=== PATIENT | female | born 1960 | race Caucasian/White ===

== ENCOUNTER 2018-05-06 13:34 | Emergency (ER) | payer MEDICARE, OTHER, SELFPAY ==
[2018-05-06 13:37] VITALS: BP 156/85; PULSE 88; RESP 16; TEMP 36.2; O2SAT 100; BMI 25.6
[2018-05-06 15:19] LABS: Hematocrit 34.3 % (36-46); Hemoglobin 11.4 g/dL (12.0-16.0); Mean Corpuscular HGB Conc 33.1 % (30-36); Mean Corpuscular Hemoglobin 25.9 PG (26-34); Mean Corpuscular Volume 78.3 fL (80-100); Platelet Count 307 X10^3/uL (150-400); Red Blood Cell Count 4.38 X10^6/uL (4.0-5.2)
[2018-05-06 15:20] LABS: INR 1.1 (0.9-1.3); Prothrombin Time 11.9 SECONDS (10.1-12.7)
[2018-05-06 15:21] LABS: Add Manual Diff / Slide Review YES
[2018-05-06 15:23] LABS: PTT Partial Thromboplastin Tim 30 SECONDS (26.4-36.2)
[2018-05-06 15:25] LABS: Alanine Aminotransferase 54 IU/L (9-52); Albumin 3.5 g/dL (3.5-5.0); Albumin Globulin Ratio 1.2 (1.0-2.8); Alkaline Phosphatase 496 U/L (38-126); Aspartate Aminotransferase 78 IU/L (14-36); BUN Creatinine Ratio 16.7 (6-22); Bilirubin Total 0.5 mg/dL (0.2-1.3); Blood Urea Nitrogen 10 mg/dL (7-17); Calcium 8.9 mg/dL (8.4-10.2); Carbon Dioxide 31 mmol/L (22-32); Chloride 100 mmol/L (98-107); Estimated Glomerular Filt Rate > 60.0 mL/min (>60); Glucose 247 mg/dL (70-100); HEMOLYSIS < 15 (0-50); Lactate (Lactic Acid) 2.3 mmol/L (0.7-2.1); Lipase 55 U/L (23-300); Sodium 143 mmol/L (137-145); Total Protein 6.5 g/dL (6.3-8.2)
[2018-05-06 15:48] LABS: Neutrophils Absolute Manual 5250 /uL (3000-5900); RBC Morphology Normal Morphology; Total Cells Counted 100
[2018-05-06 15:55] VITALS: BP 124/111; PULSE 90; RESP 18; O2SAT 100
--- NOTE | 2018-05-06 16:04 | DI.US.S_ITS ---
PROCEDURE: US ABDOMEN LIMITED INDICATIONS: ascites TECHNIQUE: Real-time focused scanning was performed of the abdomen, with image documentation. COMPARISON: None. FINDINGS: Limited sonographic images demonstrate ascites with midline marking for paracentesis. IMPRESSION: Ascites and marking for paracentesis. Dictated by: Nicole Amaya M.D. on 05/06/2018 at 17:12 Approved by: Nicole Amaya M.D. on 05/06/2018 at 17:13
--- NOTE | 2018-05-06 16:05 | DI.CT.S_ITS ---
PROCEDURE: CT ABDOMEN PELVIS W CON INDICATIONS: pancreatic cancer, increased ascites and abd pain TECHNIQUE: After the administration of intravenous contrast, 5 mm thick sections acquired from the diaphragm to the symphysis. 5 mm coronal and sagittal reformats were acquired. For radiation dose reduction, the following was used: automated exposure control, adjustment of mA and/or kV according to patient size. COMPARISON: None. FINDINGS: Image quality: Excellent. ABDOMEN: Lung bases: Lung bases are clear. Heart size is normal. Solid organs: Irregular liver masses are seen, particularly within the inferior right liver. The liver demonstrates normal size. Gallbladder wall does not appear thickened. Biliary system is non dilated. The pancreatic tail is absent. Please correlate with known patient history. Spleen is normal in size and enhancement. No adrenal nodules. Kidneys demonstrate normal size and enhancement, without hydronephrosis. Peritoneum and bowel: Bowel loops demonstrate normal wall thickness and caliber. No free air. There is moderate to prominent ascites seen. Mild diverticulosis is seen throughout the colon. Nodes and vessels: No retroperitoneal or mesenteric adenopathy by size criteria. Aorta and inferior vena cava are normal in size. Miscellaneous: No ventral hernias. Anasarca is seen. PELVIS: Genitourinary: Bladder wall thickness is normal. Miscellaneous: No inguinal hernias or adenopathy. Bones: Multiple foci of sclerotic metastatic disease are seen, which are most prominent involving the T10 level. Incidental note is made of limbus vertebral bodies at L4 and L5. No vertebral body compression fractures. S-shaped scoliotic curvature is seen. IMPRESSION: The pancreatic tail is absent and is presumed to have been previously resected. Multiple liver masses are seen, which presumably represent diffuse metastatic disease. Moderate to prominent ascites is seen. Anasarca is seen. Multiple foci of sclerotic bony metastatic disease are seen. Dictated by: Brent Valerio M.D. on 05/06/2018 at 15:33 Approved by: Brent Valerio M.D. on 05/06/2018 at 15:39
--- NOTE | 2018-05-06 16:07 | ED.ABDPAIN ---
HPI - Abdominal Pain General Chief Complaint: Abdominal Pain Stated Complaint: Distended stomach Time Seen by Provider: 05/06/18 15:25 Source: patient Mode of arrival: ambulatory Limitations: no limitations History of Present Illness HPI narrative: Patient complains of increased abdominal girth and decreased ability to eat over the last 3 days. She has a history of pancreatic cancer with metastases to the liver, for which she is followed in [place]. Patient denies fevers. No urinary symptoms. She has not been nauseated or vomiting. She states she is hungry, but as soon as she eats something she feels as though she is instantly full. MD complaint: abdominal pain ( Patient states this is more of a fullness or discomfort.) Onset (ago): day(s) Pain Consistency: constant Location: diffuse Severity: moderate Severity scale (1-10): 4 Quality: fullness and dull Radiation: none Migration to: no migration Relieving factors: nothing Exacerbating factors: nothing Associated symptoms: other ( Inability to eat despite feeling hungry; early satiety.) Treatments prior to arrival: other ( None) Related Data Home Medications Medication Instructions Recorded Confirmed [CANNIBUS] 1 ea MISCELLANEOUS PRN PRN #0 11/16/17 05/06/18 atorvastatin [Lipitor] 20 mg PO QPM #0 11/16/17 05/06/18 hydrocodone-acetaminophen [[place]] 1 tab PO Q8HP PRN #0 11/16/17 05/06/18 pramipexole [Mirapex] 0.25 mg PO QPM #0 11/16/17 05/06/18 everolimus (antineoplastic) 10 mg PO DAILY 05/06/18 05/06/18 [Afinitor] levothyroxine 50 mcg PO DAILY 05/06/18 05/06/18 lisinopril 40 mg PO DAILY 05/06/18 05/06/18 Allergies Allergy/AdvReac Type Severity Reaction Status Date / Time No Known Drug Allergies Allergy Verified 05/06/18 13:37 Review of Systems Review of Systems All systems reviewed & are unremarkable except as noted in HPI and below Constitutional Denies chills, Denies fever(s), Denies lethargy and Denies weakness Eyes Denies change in vision, Denies eye discharge, Denies irritation and Denies loss of vision ENT Ears, Nose, Mouth, and Throat: Denies change in voice, Denies neck pain and Denies sore throat Cardiovascular Denies chest pain, Denies irregular heart rhythm, Denies lightheadedness, Denies palpitations, Denies dyspnea, Denies dyspnea on exertion and Denies orthopnea Respiratory Denies cough, Denies dyspnea, Denies dyspnea on exertion and Denies wheezing Gastrointestinal Gastrointestinal: Reports abdominal pain ( fullness), Denies change in bowel habits, Denies diarrhea, Denies nausea and Denies vomiting Genitourinary Denies hematuria, Denies flank pain, Denies urinary incontinence and Denies urinary urgency Musculoskeletal Denies neck pain Integumentary/Breasts Denies pruritus, Denies erythema, Denies rash and Denies wounds Neurologic Denies confusion, Denies loss of vision and Denies weakness Psychiatric Denies anxiety, Denies confusion, Denies depression, Denies homicidal ideation and Denies suicidal ideation Endocrine Denies palpitations Hematologic/Lymphatic Denies easy bruising Allergic/Immunologic Denies wheezing PFSH Medical History Pancreatic cancer metastasized to liver (Acute) Surgical History No pertinent past surgical history (Acute) Social History Smoking Status: Current every day smoker Exam Initial Vital Signs Initial Vital Signs: Vital Signs Temperature 97.1 F L 05/06/18 13:37 Pulse Rate 88 05/06/18 13:37 Respiratory Rate 16 05/06/18 13:37 Blood Pressure 156/85 H 05/06/18 13:37 Pulse Oximetry 100 05/06/18 13:37 Const General: cooperative and well developed Nutritional Appearance: well nourished Orientation: alert, awake, oriented x3 and not confused [facility] Head: normocephalic and atraumatic Ears: external ears normal and TM's normal bilaterally Nose: external nose normal and No nasal discharge Face and sinus: sinuses nontender, face symmetric, no sinus tenderness and No dry mucous membranes Mouth: oral mucosae normal and moist mucous membranes Teeth and gingiva: dentition normal Throat: tonsils normal and uvula midline Eyes General: appearance normal, both eyes and all related structures Eyelids: eyelids normal Conjunctivae: conjunctivae normal Sclera: sclerae normal Pupils: PERRL EOM: EOM intact bilaterally Neck Neck: normal visual inspection, trachea midline, No lymphadenopathy, No midline deformity and No JVD Lymphatic: No lymphedema Chest Chest: normal inspection of the chest Resp Effort & Inspection: normal respiratory effort, able to speak in complete sentences, no respiratory distress and no use of accessory muscles Auscultation: clear to auscultation bilaterally, no rales, no rhonchi and no wheezes Cardio Rate: regular rate Rhythm: regular rhythm Heart Sounds: no click, no gallops, no murmurs and no rubs Pulses: normal peripheral pulses GI Inspection: distended Palpation: soft, no hepatosplenomegaly, No guarding, No pulsatile mass and tender ( slight, diffuse) Auscultation: normal bowel sounds Back/Spine/Pelvis Back: No CVA tenderness Cervical Spine: cervical ROM normal and No pain with cervical ROM Thoracic/Lumbar Spine: thoracic and lumbar spine normal to inspection Skin General: no rashes or lesions noted, No jaundice and No petechiae Neuro General: alert, oriented x3, gait normal and no focal motor deficits Speech: speech normal Extrem General: full ROM, no clubbing, cyanosis or edema, no pedal edema and no calf tenderness Psych Appearance: well kempt Mental Status: mental status grossly normal Attitude: cooperative Thought Content: normal and suicidality Judgment: judgment good Procedures Paracentesis Time Out Performed: Yes Local Anesthetic: lidocaine 1% Amount of anesthesia used (mL): 10 Fluid: clear and sent to lab for analysis Post Procedure Exam: awake, alert, normal BP, normal HR and normal SpO2 Patient Tolerated Procedure: Well (3 L of fluid obtained.) Complications: none Course Course Narrative: patient was worked up with labs, which were unremarkable, and a CT scan of the abdomen and pelvis, which showed metastatic disease of the liver with moderate to prominent ascites. Paracentesis was performed by myself with nursing assistance, and demonstrated clear, serous appearing fluid. Orders Ordered: ED Orders 05/06/18 15:00 Ammonia (NH3) Stat Complete Blood Count AUTO DIFF Stat Comprehensive Metabolic Panel Stat Lactate (Lactic Acid) Stat Lipase Stat Partial Thromboplastin Time Stat Prothrombin Time INR Stat 05/06/18 16:04 US abdomen limited Stat 05/06/18 16:05 CT abdomen pelvis w con Stat Vital Signs - 8 hr 05/06/18 13:37 05/06/18 15:55 Temperature 97.1 F L Pulse Rate 88 90 Respiratory Rate 16 18 Blood Pressure 156/85 H Blood Pressure [Right Arm] 124/111 H Pulse Oximetry 100 100 MDM - Abdominal Pain Medical Records Attestation: I reviewed the patient's medical records. Lab Data Attestation: I reviewed the patient's lab results. Result diagrams: 05/06/18 15:00 05/06/18 15:00 Lab Results 05/06/18 05/06/18 05/06/18 Range/Units 15:00 15:00 15:00 WBC 7.0 (4.5-11.0) X10^3/uL RBC 4.38 (4.0-5.2) X10^6/uL Hgb 11.4 L (12.0-16.0) g/dL Hct 34.3 L (36-46) % MCV 78.3 L (80-100) fL MCH 25.9 L (26-34) PG MCHC 33.1 (30-36) % RDW 16.0 H (11.6-14.8) % Plt Count 307 (150-400) X10^3/uL Neut % (Auto) Not Reportable Lymph % (Auto) Not Reportable Centre % (Auto) Not Reportable Eos % (Auto) Not Reportable Baso % (Auto) Not Reportable Total Counted 100 Seg Neutrophils % 70.0 (38-70) % Band Neutrophils % 5.0 (3-7) % Lymphocytes % (Manual) 13.0 L (25-45) % Atypical Lymphs % 2.0 H ( - 0) % Monocytes % (Manual) 9.0 (2-11) % Eosinophils % (Manual) 1.0 L (2-4) % Neutrophils # (Manual) 5250 (1606-1145) /uL RBC Morphology Normal morphology PT 11.9 (10.1-12.7) SECONDS INR 1.1 (0.9-1.3) APTT 30 (26.4-36.2) SECONDS Sodium 143 (137-145) mmol/L Potassium 4.0 (3.4-5.1) mmol/L Chloride 100 (98-107) mmol/L Carbon Dioxide 31 (22-32) mmol/L BUN 10 (7-17) mg/dL Creatinine 0.60 (0.52-1.04) mg/dL Estimated GFR > 60.0 (>60) mL/min BUN/Creatinine Ratio 16.7 (6-22) Glucose 247 H (70-100) mg/dL Lactate (0.7-2.1) mmol/L Calcium 8.9 (8.4-10.2) mg/dL Total Bilirubin 0.5 (0.2-1.3) mg/dL AST 78 H (14-36) IU/L ALT 54 H (9-52) IU/L Alkaline Phosphatase 496 H (38-126) U/L Ammonia (9-30) umol/L Total Protein 6.5 (6.3-8.2) g/dL Albumin 3.5 (3.5-5.0) g/dL Globulin 3.0 (1.7-4.1) g/dL Albumin/Globulin Ratio 1.2 (1.0-2.8) Lipase 55 (23-300) U/L 05/06/18 05/06/18 Range/Units 15:00 15:00 WBC (4.5-11.0) X10^3/uL RBC (4.0-5.2) X10^6/uL Hgb (12.0-16.0) g/dL Hct (36-46) % MCV (80-100) fL MCH (26-34) PG MCHC (30-36) % RDW (11.6-14.8) % Plt Count (150-400) X10^3/uL Neut % (Auto) Lymph % (Auto) Centre % (Auto) Eos % (Auto) Baso % (Auto) Total Counted Seg Neutrophils % (38-70) % Band Neutrophils % (3-7) % Lymphocytes % (Manual) (25-45) % Atypical Lymphs % ( - 0) % Monocytes % (Manual) (2-11) % Eosinophils % (Manual) (2-4) % Neutrophils # (Manual) (7375-7783) /uL RBC Morphology PT (10.1-12.7) SECONDS INR (0.9-1.3) APTT (26.4-36.2) SECONDS Sodium (137-145) mmol/L Potassium (3.4-5.1) mmol/L Chloride (98-107) mmol/L Carbon Dioxide (22-32) mmol/L BUN (7-17) mg/dL Creatinine (0.52-1.04) mg/dL Estimated GFR (>60) mL/min BUN/Creatinine Ratio (6-22) Glucose (70-100) mg/dL Lactate 2.3 H (0.7-2.1) mmol/L Calcium (8.4-10.2) mg/dL Total Bilirubin (0.2-1.3) mg/dL AST (14-36) IU/L ALT (9-52) IU/L Alkaline Phosphatase (38-126) U/L Ammonia 15.0 (9-30) umol/L Total Protein (6.3-8.2) g/dL Albumin (3.5-5.0) g/dL Globulin (1.7-4.1) g/dL Albumin/Globulin Ratio (1.0-2.8) Lipase (23-300) U/L Point of care testing: Urine Dip Bedside Urine Glucose 500 mg/dl Bedside Urine Bilirubin - Negative Bedside Urine Ketone - Negative Urine Specific [place] 1.020 Bedside Urine Occult Blood - Negative Bedside Urine pH 6.0 Bedside Urine Protein +/- 15 Bedside Urine Urobilinogen - Negative Bedside Urine Nitrite - Negative Bedside Urine Leukocytes - Negative Esterase Discharge Plan Departure Patient Disposition: Home Clinical Impression: Ascites, Pancreatic cancer metastasized to liver, S/P abdominal paracentesis Discharge Date/Time: 05/06/18 18:15 Interventions: ED Discharge Assessment Last Done: 05/06/18 18:14 Instructions: DI for Ascites, DI for Abdominal Paracentesis Activity Restrictions/Additional Instructions: Your CT scan shows that you have fluid building up in your abdomen. This is a result of the cancer that is in your liver. 3 L have been drained out of your abdomen today. Please follow up with her oncologist to discuss further treatment of your cancer. Prescriptions: No Action atorvastatin [Lipitor] 20 MG tablet 20 mg PO QPM Qty: 0 RF: 0 hydrocodone-acetaminophen [[place]] 10 MG/325 MG tablet 1 tab PO Q8HP PRN (Reason: Pain, Moderate) Qty: 0 RF: 0 pramipexole [Mirapex] 0.25 MG tablet 0.25 mg PO QPM Qty: 0 RF: 0 [CANNIBUS] 1 ea miscellaneous PRN PRN (Reason: misc) Qty: 0 RF: 0 levothyroxine 50 mcg tablet 50 mcg PO DAILY RF: 0 lisinopril 40 mg tablet 40 mg PO DAILY RF: 0 everolimus (antineoplastic) [Afinitor] 10 mg tablet 10 mg PO DAILY RF: 0 Referrals: Outside Services [Outside] ( Please follow-up with your primary care physician and oncologist when you get back home.)
[2018-05-06 17:43] VITALS: BP 144/84; PULSE 81; RESP 18; O2SAT 100
[2018-05-06 19:08] LABS: Reflexed Lactate in 2 Hours Y
== END 2018-05-06 18:15 | disposition home or self-care (01) ==
PROVIDERS: Nurse Practitioner Family; Emergency Provider Emergency Medicine
DX: R18.8 Other ascites (principal); C25.9 Malignant neoplasm of pancreas, unspecified; C78.7 Secondary malignant neoplasm of liver and intrahepatic bile duct; Z98.890 Other specified postprocedural states
CPT/HCPCS: 36591; 49082; 74177; 76705; 80053; 81003; 82140; 83605; 83690; 85025; 85610; 85730; 87070; 87075; 87205; 99283; 99285; Q9967

== ENCOUNTER 2018-05-19 15:37 | Emergency (ER) | payer MEDICARE, OTHER, SELFPAY ==
[2018-05-19 15:55] VITALS: BP 112/77; PULSE 104; RESP 18; TEMP 36.4; O2SAT 100; BMI 25.5
--- NOTE | 2018-05-19 18:35 | DI.US.S_ITS ---
PROCEDURE: US ABDOMEN LIMITED INDICATIONS: ASCITIES; ISAIAS FOR PARACENTESIS TECHNIQUE: Real-time focused scanning was performed of the abdomen, with image documentation. COMPARISON: None. FINDINGS: Marker sonographic guidance for paracentesis. The skin to fluid distance is 7 mm. IMPRESSION: Sonographic guidance for paracentesis. Dictated by: Alysia Segura M.D. on 05/19/2018 at 19:20 Approved by: Alysia Segura M.D. on 05/19/2018 at 19:21
[2018-05-19 19:21] VITALS: BP 113/69; PULSE 94; RESP 18; O2SAT 96
[2018-05-19 19:30] VITALS: BP 114/66; PULSE 97; RESP 14
[2018-05-19 19:45] LABS: INR 1.1 (0.9-1.3); Prothrombin Time 12.4 SECONDS (10.1-12.7)
[2018-05-19 19:48] LABS: PTT Partial Thromboplastin Tim 29 SECONDS (26.4-36.2)
[2018-05-19 19:54] LABS: Alanine Aminotransferase 43 IU/L (9-52); Albumin 3.3 g/dL (3.5-5.0); Albumin Globulin Ratio 1.1 (1.0-2.8); Alkaline Phosphatase 379 U/L (38-126); Aspartate Aminotransferase 105 IU/L (14-36); BUN Creatinine Ratio 21.3 (6-22); Bilirubin Total 1.1 mg/dL (0.2-1.3); Blood Urea Nitrogen 17 mg/dL (7-17); Carbon Dioxide 30 mmol/L (22-32); Chloride 98 mmol/L (98-107); Estimated Glomerular Filt Rate > 60.0 mL/min (>60); Globulin 3.1 g/dL (1.7-4.1); Glucose 164 mg/dL (70-100); HEMOLYSIS < 15 (0-50); Sodium 138 mmol/L (137-145); Total Protein 6.4 g/dL (6.3-8.2)
[2018-05-19 19:59] LABS: Add Manual Diff / Slide Review NO; Basophils Percent Auto 1.4 % (0-2); Eosinophils Percent Auto 0.1 % (2-4); Hematocrit 34.1 % (36-46); Lymphocytes Percent Auto 14.8 % (25-40); Mean Corpuscular HGB Conc 32.3 % (30-36); Mean Corpuscular Hemoglobin 25.4 PG (26-34); Mean Corpuscular Volume 78.6 fL (80-100); Monocytes Percent Auto 10.4 % (3-14); Neutrophils Absolute Auto 7900 /uL (3000-5900); Neutrophils Percent Auto 73.3 % (50-75); Platelet Count 521 X10^3/uL (150-400); Red Blood Cell Count 4.34 X10^6/uL (4.0-5.2); Red Cell Distribution Width 17.5 % (11.6-14.8); White Blood Cell Count 10.7 X10^3/uL (4.5-11.0)
[2018-05-19 20:00] VITALS: BP 119/79; PULSE 97; RESP 14; O2SAT 98
[2018-05-19 20:02] LABS: Lipase 27 U/L (23-300)
[2018-05-19 20:30] VITALS: BP 104/62; PULSE 97; RESP 14; TEMP 36.6; O2SAT 97
[2018-05-19] MEDS: HYDROMORPHONE 1 MG INJ 0.5 MG IV (20:31)
--- NOTE | 2018-05-19 21:36 | ED_ITS ---
HPI - Abdominal Pain General Chief Complaint: Abdominal Pain Stated Complaint: ABD FLUID PAIN Time Seen by Provider: 05/19/18 19:02 Source: patient, RN notes reviewed and old records reviewed Mode of arrival: ambulatory Limitations: no limitations History of Present Illness HPI narrative: patient is a 58-year-old female who has a history of pancreatic cancer with mets to liver. She continues to have ascites. She was seen evaluated here 05/06/2018 in she had any ED paracentesis. She says today it feels much worse she starting to have difficulty breathing her legs are swollen. She has not had any fever or chills. Her abdomen is nontender but distended. MD complaint: abdominal pain Onset (ago): day(s) Pain Consistency: constant Location: diffuse Quality: fullness Migration to: no migration Relieving factors: nothing Exacerbating factors: nothing Associated symptoms: denies other symptoms Related Data Home Medications Medication Instructions Recorded Confirmed [CANNIBUS] 1 ea MISCELLANEOUS PRN PRN #0 11/16/17 05/06/18 atorvastatin [Lipitor] 20 mg PO QPM #0 11/16/17 05/19/18 hydrocodone-acetaminophen [[place]] 1 tab PO Q8HP PRN #0 11/16/17 05/19/18 pramipexole [Mirapex] 0.25 mg PO QPM #0 11/16/17 05/19/18 everolimus (antineoplastic) 10 mg PO DAILY 05/06/18 05/19/18 [Afinitor] levothyroxine 50 mcg PO DAILY 05/06/18 05/06/18 lisinopril 05/19/18 Allergies Allergy/AdvReac Type Severity Reaction Status Date / Time No Known Drug Allergies Allergy Verified 05/06/18 13:37 Review of Systems Review of Systems All systems reviewed & are unremarkable except as noted in HPI and below Constitutional Denies chills, Denies fever(s), Denies lethargy and Denies weakness Cardiovascular Denies chest pain, Denies irregular heart rhythm, Denies lightheadedness, Denies palpitations, Reports dyspnea and Denies orthopnea Respiratory Reports as per HPI and Reports dyspnea Gastrointestinal Gastrointestinal: Reports as per HPI, Reports abdominal pain and Reports vomiting Genitourinary Denies hematuria, Denies flank pain, Denies urinary incontinence and Denies urinary urgency Musculoskeletal Denies back pain, Denies muscle weakness, Denies numbness and Denies tingling Integumentary/Breasts Denies pruritus, Denies erythema, Denies rash and Denies wounds Neurologic Denies numbness, Denies tingling and Denies weakness Endocrine Denies palpitations PFSH Medical History Pancreatic cancer metastasized to liver (Acute) Surgical History No pertinent past surgical history (Acute) Social History Smoking Status: Current every day smoker Exam Initial Vital Signs Initial Vital Signs: Vital Signs Temperature 97.6 F 05/19/18 15:55 Pulse Rate 104 H 05/19/18 15:55 Respiratory Rate 18 05/19/18 15:55 Blood Pressure 112/77 05/19/18 15:55 Pulse Oximetry 100 05/19/18 15:55 GENERAL: A thin chronically ill no acute distress HEENT: Head atraumatic,EOMI, pupils reactive, CARDIOVASCULAR: Regular rate and rhythm without murmurs, rubs or gallops. RESPIRATORY: Breath sounds equal bilaterally, no wheezes rales or rhonchi. ABDOMEN: Distended positive fluid wave nontender EXTREMITIES: Normal range of motion, no clubbing or edema. Neurovascularly intact NEUROLOGICAL: Alert and oriented x4.Normal gait and speech. SKIN: Warm, dry, no laceration, no petechiae, no rashes or lesions. Procedures Paracentesis Time Out Performed: Yes Local Anesthetic: lidocaine 1% Amount of anesthesia used (mL): 2 Fluid: clear (Yellow ) Post Procedure Exam: awake, alert, normal BP, normal HR and normal SpO2 Patient Tolerated Procedure: Well ( 2 L removed) and No complications Complications: none Course Orders Ordered: ED Orders 05/19/18 18:35 US abdomen limited Stat 05/19/18 19:33 Complete Blood Count AUTO DIFF Stat Comprehensive Metabolic Panel Stat Lipase Stat Partial Thromboplastin Time Stat Prothrombin Time INR Stat Discontinued Medications Hydromorphone HCl (Dilaudid) 0.5 mg IV NOW ONE Stop: 05/19/18 20:18 Last Admin: 05/19/18 20:31 Dose: 0.5 mg Vital Signs - 8 hr 05/19/18 19:21 05/19/18 19:30 05/19/18 20:00 Temperature Pulse Rate 94 H 97 H 97 H Respiratory Rate 18 14 14 Blood Pressure [Right Arm] 113/69 114/66 119/79 Pulse Oximetry 96 98 05/19/18 20:30 Temperature 98 F Pulse Rate 97 H Respiratory Rate 14 Blood Pressure [Right Arm] 104/62 Pulse Oximetry 97 MDM - Abdominal Pain Lab Data Attestation: I reviewed the patient's lab results. Result diagrams: 05/19/18 19:33 05/19/18 19:33 Lab Results 05/19/18 05/19/18 05/19/18 Range/Units 19:33 19:33 19:33 WBC 10.7 (4.5-11.0) X10^3/uL RBC 4.34 (4.0-5.2) X10^6/uL Hgb 11.0 L (12.0-16.0) g/dL Hct 34.1 L (36-46) % MCV 78.6 L (80-100) fL MCH 25.4 L (26-34) PG MCHC 32.3 (30-36) % RDW 17.5 H (11.6-14.8) % Plt Count 521 H (150-400) X10^3/uL Neut % (Auto) 73.3 (50-75) % Lymph % (Auto) 14.8 L (25-40) % [place] % (Auto) 10.4 (3-14) % Eos % (Auto) 0.1 L (2-4) % Baso % (Auto) 1.4 (0-2) % Neut # (Auto) 7900 H (3413-5924) /uL PT 12.4 (10.1-12.7) SECONDS INR 1.1 (0.9-1.3) APTT 29 (26.4-36.2) SECONDS Sodium 138 (137-145) mmol/L Potassium 4.0 (3.4-5.1) mmol/L Chloride 98 (98-107) mmol/L Carbon Dioxide 30 (22-32) mmol/L BUN 17 (7-17) mg/dL Creatinine 0.80 (0.52-1.04) mg/dL Estimated GFR > 60.0 (>60) mL/min BUN/Creatinine Ratio 21.3 (6-22) Glucose 164 H (70-100) mg/dL Calcium 9.0 (8.4-10.2) mg/dL Total Bilirubin 1.1 (0.2-1.3) mg/dL AST 105 H (14-36) IU/L ALT 43 (9-52) IU/L Alkaline Phosphatase 379 H (38-126) U/L Total Protein 6.4 (6.3-8.2) g/dL Albumin 3.3 L (3.5-5.0) g/dL Globulin 3.1 (1.7-4.1) g/dL Albumin/Globulin Ratio 1.1 (1.0-2.8) Lipase 27 (23-300) U/L Imaging Data US - abdomen: Radiologist's impression: ROCEDURE: US ABDOMEN LIMITED INDICATIONS: ASCITIES; ISAIAS FOR PARACENTESIS TECHNIQUE: Real-time focused scanning was performed of the abdomen, with image documentation. COMPARISON: None. FINDINGS: Marker sonographic guidance for paracentesis. The skin to fluid distance is 7 mm. IMPRESSION: Sonographic guidance for paracentesis. Dictated by: Alysia Segura M.D. on 05/19/2018 at 19:20 MDM Narrative Medical decision making narrative: Landmarks identified by ultrasound and confirmed by me. No complications of procedure. Patient overall feeling much better. She had 2 L quickly removed. She has an appointment on the 20 sec for another paracentesis. I anticipate that she may need this appointment. I recommend she follow up at [facility] Discharge Plan Departure Patient Disposition: Home Clinical Impression: Ascites, Pancreatic cancer metastasized to liver Discharge Date/Time: 05/19/18 21:43 Interventions: ED Discharge Assessment Last Done: 05/19/18 21:42 Instructions: DI for Ascites, Abdominal Paracentesis Activity Restrictions/Additional Instructions: *You have been diagnosed with ascites pancreatic cancer *What to do: fluid will continue to reaccumulate. You can schedule frequent paracentesis with your local doctor as to avoid frequent emergency department visits. *Continue to take medications as directed *Follow up with your primary care provider in 2-3 days *Return to ER if you should have Fever, increased abdominal pain, shortness of breath, dizziness, lightheadedness any new, worsening or concerning symptoms Prescriptions: No Action atorvastatin [Lipitor] 20 MG tablet 20 mg PO QPM Qty: 0 RF: 0 hydrocodone-acetaminophen [[place]] 10 MG/325 MG tablet 1 tab PO Q8HP PRN (Reason: Pain, Moderate) Qty: 0 RF: 0 pramipexole [Mirapex] 0.25 MG tablet 0.25 mg PO QPM Qty: 0 RF: 0 [CANNIBUS] 1 ea miscellaneous PRN PRN (Reason: misc) Qty: 0 RF: 0 levothyroxine 50 mcg tablet 50 mcg PO DAILY RF: 0 everolimus (antineoplastic) [Afinitor] 10 mg tablet 10 mg PO DAILY RF: 0 lisinopril 40 mg tablet RF: 0
== END 2018-05-19 21:43 | disposition home or self-care (01) ==
PROVIDERS: Emergency Provider Emergency Medicine
DX: R18.8 Other ascites (principal); C25.9 Malignant neoplasm of pancreas, unspecified; C78.7 Secondary malignant neoplasm of liver and intrahepatic bile duct
CPT/HCPCS: 36591; 49082; 76705; 80053; 83690; 85025; 85610; 85730; 96374; 99283; 99284; J1170

== ENCOUNTER → 2018-05-26 14:02 | Outpatient (CLI) | payer MEDICARE, OTHER, SELFPAY ==
--- NOTE | 2018-05-26 | DI.US.S_ITS ---
PROCEDURE: US PARACENTESIS INDICATIONS: LIVER METASTASES TECHNIQUE: The indications, alternatives, benefits, risks, and complications of the procedure were explained to the patient. Written informed consent was obtained and placed in the chart. The abdomen and pelvis were examined sonographically, and an appropriate site was chosen for paracentesis. The skin was prepared and draped in the usual sterile fashion, and 1% lidocaine was infiltrated from the skin down through the peritoneal surface. A 19-gauge catheter-covered needle was then introduced into the peritoneal space, the catheter was advanced and the needle was withdrawn, and thereafter peritoneal fluid was withdrawn. The catheter was then removed and a dressing was applied. The fluid was discarded if the clinician did not order diagnostic testing of the fluid. COMPARISON: None. FINDINGS: Access site: Midline Needle: One-Step centesis catheter with introducer needle. Fluid volume and description: 5600 cc of serous ascites Fluid sent for diagnostic testing: Not requested Medications: 1% lidocaine for local anaesthesia. Complications: None. IMPRESSION: Successful ultrasound-guided paracentesis. Dictated by: Clint Guillen M.D. on 05/26/2018 at 16:40 Approved by: Clint Guillen M.D. on 05/26/2018 at 16:45
== END ==
PROVIDERS: Visit Provider Physician Assistant Medical
DX: C78.7 Secondary malignant neoplasm of liver and intrahepatic bile duct (principal)
CPT/HCPCS: 49083

== ENCOUNTER 2018-06-02 15:42 | Emergency (ER) | payer MEDICARE, OTHER, SELFPAY ==
[2018-06-02 16:13] VITALS: BP 127/87; PULSE 73; RESP 22; TEMP 36.4; O2SAT 92; BMI 24.5
--- NOTE | 2018-06-02 18:43 | ED.ABDPAIN ---
HPI - Abdominal Pain General Chief Complaint: Abdominal Pain Stated Complaint: fluid build up in abdomen,lots of swelling Time Seen by Provider: 06/02/18 18:51 Source: patient and old records reviewed Mode of arrival: ambulatory Limitations: no limitations History of Present Illness HPI narrative: Patient is a 58-year-old female with liver metastasis here for her 4th paracentesis this month. Previously was done on 05/26/2018 with got 5600cc off. She says she is having increasing abdominal pain and fluid. People are talking about putting in a pigtail catheter but no one has done so yet. She denies any fever or chills. She complains of only increased distention and pain. She was seen 5 days ago in [place] by her oncologist who is aware that her abdomen was distended, however she has had the paracentesis a few days ago it has gotten significantly worse since then. MD complaint: abdominal pain Location: diffuse Severity: moderate Quality: fullness Related Data Home Medications Medication Instructions Recorded Confirmed [CANNIBUS] 1 ea MISCELLANEOUS PRN PRN #0 11/16/17 05/06/18 atorvastatin [Lipitor] 20 mg PO QPM #0 11/16/17 05/19/18 hydrocodone-acetaminophen [[place]] 1 tab PO Q8HP PRN #0 11/16/17 05/19/18 pramipexole [Mirapex] 0.25 mg PO QPM #0 11/16/17 06/02/18 everolimus (antineoplastic) 10 mg PO DAILY 05/06/18 06/02/18 [Afinitor] levothyroxine 50 mcg PO DAILY 05/06/18 05/06/18 lisinopril 40 mg PO DAILY 05/19/18 06/02/18 furosemide 40 mg PO DAILY 06/02/18 06/02/18 spironolactone 1 tab PO DAILY 06/02/18 06/02/18 Previous Rx's Medication Instructions Recorded oxycodone-acetaminophen 1 tab PO Q6H PRN #10 tab 06/02/18 Allergies Allergy/AdvReac Type Severity Reaction Status Date / Time No Known Drug Allergies Allergy Verified 06/02/18 16:18 Review of Systems Review of Systems All systems reviewed & are unremarkable except as noted in HPI and below Constitutional Denies chills, Denies fever(s), Denies lethargy and Denies weakness Eyes Denies loss of vision ENT Ears, Nose, Mouth, and Throat: Denies change in voice, Denies neck pain and Denies sore throat Cardiovascular Denies chest pain, Denies irregular heart rhythm, Denies lightheadedness, Denies palpitations, Denies dyspnea, Denies dyspnea on exertion and Denies orthopnea Respiratory Denies cough, Denies dyspnea, Denies dyspnea on exertion and Denies wheezing Gastrointestinal Gastrointestinal: Reports as per HPI Musculoskeletal Denies neck pain and Denies numbness Integumentary/Breasts Denies pruritus, Denies erythema, Denies rash and Denies wounds Neurologic Denies loss of vision, Denies numbness and Denies weakness Endocrine Denies palpitations Allergic/Immunologic Denies wheezing COUNT INCLUDES THE [facility] Medical History Pancreatic cancer metastasized to liver (Acute) Surgical History No pertinent past surgical history (Acute) Social History Smoking Status: Current every day smoker Exam Initial Vital Signs Initial Vital Signs: Vital Signs Temperature 97.5 F L 06/02/18 16:13 Pulse Rate 73 06/02/18 16:13 Respiratory Rate 22 06/02/18 16:13 Blood Pressure 127/87 06/02/18 16:13 Pulse Oximetry 92 06/02/18 16:13 GENERAL: Chronically-ill female with distended abdomen no acute distress walking and talking without difficulty HEENT: Head atraumatic,EOMI, pupils reactive, face symmetric CARDIOVASCULAR: Regular rate and rhythm without murmurs, rubs or gallops. RESPIRATORY: Breath sounds equal bilaterally, no wheezes rales or rhonchi. ABDOMEN: Distended, positive fluid wave no erythema no localization of pain EXTREMITIES: Normal range of motion, no clubbing or edema. Neurovascularly intact NEUROLOGICAL: Alert and oriented x4.Normal gait and speech. Cranial nerves II through XII grossly intact. SKIN: Warm, dry, no laceration, no petechiae, no rashes or lesions. Procedures Paracentesis Time Out Performed: Yes Local Anesthetic: lidocaine 1% Amount of anesthesia used (mL): 3 Fluid: cloudy Post Procedure Exam: awake, alert, normal BP, normal HR and normal SpO2 Patient Tolerated Procedure: Well Complications: none and other (Access site: Right lower quadrant. Needle one-step centesis catheter with introducer needle, fluid volume cloudy, 2500 cc, sent for cell count and culture) Course Orders Ordered: ED Orders 06/02/18 18:52 US abdomen limited Stat 06/02/18 18:55 Complete Blood Count AUTO DIFF Stat Comprehensive Metabolic Panel Stat Partial Thromboplastin Time Stat Prothrombin Time INR Stat 06/02/18 19:53 Blood Culture Stat 06/02/18 19:58 Lactate (Lactic Acid) Stat 06/02/18 20:11 Body Fluid Culture Stat Cell Count w Diff Body Fluid Stat Glucose Body Fluid Stat LDH Body Fluid Stat Total Protein Body Fluid Stat Discontinued Medications Hydromorphone HCl (Dilaudid) 1 mg IV NOW ONE Stop: 06/02/18 18:53 Last Admin: 06/02/18 19:17 Dose: 1 mg Ceftriaxone Sodium/Dextrose (Rocephin) 2 gm in 50 mls @ 100 mls/hr IV NOW ONE Stop: 06/02/18 20:45 Last Infusion: 06/02/18 21:15 Dose: 0 mls/hr Admin: 06/02/18 20:40 Dose: 100 mls/hr Oxycodone/Acetaminophen (Endocet 5/325 Prepack) 1 bottle MISC SEEINSTR ONE Stop: 06/02/18 21:54 Last Admin: 06/02/18 22:14 Dose: 1 bottle Vital Signs - 8 hr 06/02/18 19:05 06/02/18 20:26 06/02/18 21:48 Pulse Rate 93 H 100 H 94 H Respiratory Rate 16 18 18 Blood Pressure [Left Arm] 115/59 L 100/59 L 102/69 Pulse Oximetry 98 98 97 MDM - Abdominal Pain Medical Records Attestation: I reviewed the patient's medical records. Lab Data Attestation: I reviewed the patient's lab results. Result diagrams: 06/02/18 18:55 06/02/18 18:55 Lab Results 06/02/18 06/02/18 06/02/18 Range/Units 18:55 18:55 18:55 WBC 16.5 H (4.5-11.0) X10^3/uL RBC 4.64 (4.0-5.2) X10^6/uL Hgb 12.3 (12.0-16.0) g/dL Hct 37.6 (36-46) % MCV 81.1 (80-100) fL MCH 26.6 (26-34) PG MCHC 32.8 (30-36) % RDW 22.4 H (11.6-14.8) % Plt Count 488 H (150-400) X10^3/uL Neut % (Auto) 80.5 H (50-75) % Lymph % (Auto) 13.5 L (25-40) % Allen % (Auto) 4.5 (3-14) % Eos % (Auto) 0.1 L (2-4) % Baso % (Auto) 1.4 (0-2) % Neut # (Auto) 05535 H (8655-4285) /uL RBC Morphology See below Anisocytosis 2+ H PT 11.6 (10.1-12.7) SECONDS INR 1.1 (0.9-1.3) APTT 28 (26.4-36.2) SECONDS Sodium 137 (137-145) mmol/L Potassium 4.8 (3.4-5.1) mmol/L Chloride 100 (98-107) mmol/L Carbon Dioxide 24 (22-32) mmol/L BUN 31 H (7-17) mg/dL Creatinine 1.00 (0.52-1.04) mg/dL Estimated GFR 56.9 L (>60) mL/min BUN/Creatinine Ratio 31.0 H (6-22) Glucose 210 H (70-100) mg/dL Lactate (0.7-2.1) mmol/L Calcium 8.9 (8.4-10.2) mg/dL Total Bilirubin 0.9 (0.2-1.3) mg/dL AST 133 H (14-36) IU/L ALT 45 (9-52) IU/L Alkaline Phosphatase 524 H (38-126) U/L Total Protein 7.0 (6.3-8.2) g/dL Albumin 3.5 (3.5-5.0) g/dL Globulin 3.5 (1.7-4.1) g/dL Albumin/Globulin Ratio 1.0 (1.0-2.8) Fluid Color Fluid Appearance Fluid RBC /uL Fld Tot Nucleated Cell /uL Fluid Polynuclear WBCs % Fluid Mononuclear WBCs % Fluid Eosinophils % Fluid Other Cells % Body Fluid Clot Fluid Glucose mg/dL Fluid Total Protein g/dL Fluid LDH U/L 06/02/18 06/02/18 06/02/18 Range/Units 19:58 20:11 20:11 WBC (4.5-11.0) X10^3/uL RBC (4.0-5.2) X10^6/uL Hgb (12.0-16.0) g/dL Hct (36-46) % MCV (80-100) fL MCH (26-34) PG MCHC (30-36) % RDW (11.6-14.8) % Plt Count (150-400) X10^3/uL Neut % (Auto) (50-75) % Lymph % (Auto) (25-40) % Allen % (Auto) (3-14) % Eos % (Auto) (2-4) % Baso % (Auto) (0-2) % Neut # (Auto) (2058-0507) /uL RBC Morphology Anisocytosis PT (10.1-12.7) SECONDS INR (0.9-1.3) APTT (26.4-36.2) SECONDS Sodium (137-145) mmol/L Potassium (3.4-5.1) mmol/L Chloride (98-107) mmol/L Carbon Dioxide (22-32) mmol/L BUN (7-17) mg/dL Creatinine (0.52-1.04) mg/dL Estimated GFR (>60) mL/min BUN/Creatinine Ratio (6-22) Glucose (70-100) mg/dL Lactate 1.6 (0.7-2.1) mmol/L Calcium (8.4-10.2) mg/dL Total Bilirubin (0.2-1.3) mg/dL AST (14-36) IU/L ALT (9-52) IU/L Alkaline Phosphatase (38-126) U/L Total Protein (6.3-8.2) g/dL Albumin (3.5-5.0) g/dL Globulin (1.7-4.1) g/dL Albumin/Globulin Ratio (1.0-2.8) Fluid Color Yellow Fluid Appearance Slightly cloudy Fluid RBC < 1000 /uL Fld Tot Nucleated Cell 212 /uL Fluid Polynuclear WBCs 10 % Fluid Mononuclear WBCs 49 % Fluid Eosinophils 0 % Fluid Other Cells 41 % Body Fluid Clot No clots present Fluid Glucose 233 mg/dL Fluid Total Protein < 2.0 g/dL Fluid LDH 362 Cancelled U/L 06/02/18 Range/Units 20:11 WBC (4.5-11.0) X10^3/uL RBC (4.0-5.2) X10^6/uL Hgb (12.0-16.0) g/dL Hct (36-46) % MCV (80-100) fL MCH (26-34) PG MCHC (30-36) % RDW (11.6-14.8) % Plt Count (150-400) X10^3/uL Neut % (Auto) (50-75) % Lymph % (Auto) (25-40) % Allen % (Auto) (3-14) % Eos % (Auto) (2-4) % Baso % (Auto) (0-2) % Neut # (Auto) (9519-2976) /uL RBC Morphology Anisocytosis PT (10.1-12.7) SECONDS INR (0.9-1.3) APTT (26.4-36.2) SECONDS Sodium (137-145) mmol/L Potassium (3.4-5.1) mmol/L Chloride (98-107) mmol/L Carbon Dioxide (22-32) mmol/L BUN (7-17) mg/dL Creatinine (0.52-1.04) mg/dL Estimated GFR (>60) mL/min BUN/Creatinine Ratio (6-22) Glucose (70-100) mg/dL Lactate (0.7-2.1) mmol/L Calcium (8.4-10.2) mg/dL Total Bilirubin (0.2-1.3) mg/dL AST (14-36) IU/L ALT (9-52) IU/L Alkaline Phosphatase (38-126) U/L Total Protein (6.3-8.2) g/dL Albumin (3.5-5.0) g/dL Globulin (1.7-4.1) g/dL Albumin/Globulin Ratio (1.0-2.8) Fluid Color Fluid Appearance Fluid RBC /uL Fld Tot Nucleated Cell /uL Fluid Polynuclear WBCs % Fluid Mononuclear WBCs % Fluid Eosinophils % Fluid Other Cells % Body Fluid Clot Fluid Glucose Cancelled mg/dL Fluid Total Protein g/dL Fluid LDH U/L Imaging Data US - abdomen: Radiologist's impression: PROCEDURE: US ABDOMEN LIMITED INDICATIONS: ISAIAS SKIN FOR PARACENTESIS TECHNIQUE: Real-time focused scanning was performed of the abdomen, with image documentation. COMPARISON: [facility], , US ABDOMEN LIMITED, 05/19/2018, 18:51. FINDINGS: There is a large amount of ascites demonstrated in the abdomen. A large fluid pocket was localized and marked in the right lower quadrant and the presence of Dr. Kumar. IMPRESSION: 1. Limited study performed for localization for paracentesis. Dictated by: Gume Mccall M.D. on 06/02/2018 at 20:26 MDM Narrative Medical decision making narrative: Patient has increased leukocytosis from previous times. She denies fever or chills she has no her mental status. She does not have any other signs of infection including UTI like symptoms or respiratory like symptoms. His she has a normal lactic acid.. His paracentesis fluid sent to rule out spontaneous bacterial peritonitis. While waiting for a fluid to result she was empirically given 2 g of ceftriaxone. She has less than 250 neutrophils, and no other signs or symptoms to suggest SBP. She does have increased leukocytosis which is slightly worrisome however she has a normal lactic acid and no signs or symptoms of other Infection I discussed all findings with the patient and daughter, Education has been performed regarding treatment plan, diagnosis, warning signs and symptoms and all concerns have been addressed. Verbally agree with and understood all of the above. Discharge Plan Departure Patient Disposition: Home Clinical Impression: Ascites Discharge Date/Time: 06/02/18 22:21 Interventions: ED Discharge Assessment Last Done: 06/02/18 22:21 Instructions: DI for Ascites, DI for Abdominal Paracentesis Activity Restrictions/Additional Instructions: *You have been diagnosed with ascites *What to do: You do have elevated white count. At this time it does not appear that fluid in abdomen is infected. Continue to take temperature daily. Need to talk to oncology in regards too catheter or more frequent draining *Continue to take medications as directed Percocet 1-2 tabs every 6 hr if needed for pain *Follow up with your primary care provider in 2-3 days *Return to ER if you should have altered mental status, fever more than 100.4, increased pain, shortness of breath or any new, worsening or concerning symptoms CONTROLLED SUBSTANCE DISCHARGE (Narcotoic/benzodiazepine/Flexeril/Phenergan) 1. You have been prescribed narcotic medications, it does have acetaminophen/Tylenol/paracetamol in it so do not take extra Tylenol or Tylenol containing products 2. Please understand that we cannot provide further refills of narcotics, benzodiazepines or controlled substances through the ED and her pain management will need to be through your provider. 3. While on these medications you cannot drive or operate heavy machinery. 4. You cannot sign legal documents or perform any duties such as this. 5. As long as you're taking opiate pain medications he should also be taking a stool softener such as Colace, Dulcolax, MiraLAX or prune juice, to help avoid constipation. Prescriptions: New oxycodone-acetaminophen 2.5-325 mg tablet 1 tab PO Q6H PRN (Reason: pain) Qty: 10 RF: 0 No Action atorvastatin [Lipitor] 20 MG tablet 20 mg PO QPM Qty: 0 RF: 0 hydrocodone-acetaminophen [[place]] 10 MG/325 MG tablet 1 tab PO Q8HP PRN (Reason: Pain, Moderate) Qty: 0 RF: 0 pramipexole [Mirapex] 0.25 MG tablet 0.25 mg PO QPM Qty: 0 RF: 0 [CANNIBUS] 1 ea miscellaneous PRN PRN (Reason: misc) Qty: 0 RF: 0 levothyroxine 50 mcg tablet 50 mcg PO DAILY RF: 0 everolimus (antineoplastic) [Afinitor] 10 mg tablet 10 mg PO DAILY RF: 0 lisinopril 40 mg tablet 40 mg PO DAILY RF: 0 furosemide 40 mg tablet 40 mg PO DAILY RF: 0 spironolactone 25 mg tablet 1 tab PO DAILY RF: 0
--- NOTE | 2018-06-02 18:52 | DI.US.S_ITS ---
PROCEDURE: US ABDOMEN LIMITED INDICATIONS: ISAIAS SKIN FOR PARACENTESIS TECHNIQUE: Real-time focused scanning was performed of the abdomen, with image documentation. COMPARISON: [facility], , US ABDOMEN LIMITED, 05/19/2018, 18:51. FINDINGS: There is a large amount of ascites demonstrated in the abdomen. A large fluid pocket was localized and marked in the right lower quadrant and the presence of Dr. Kumar. IMPRESSION: 1. Limited study performed for localization for paracentesis. Dictated by: Gume Mccall M.D. on 06/02/2018 at 20:26 Approved by: Gume Mccall M.D. on 06/02/2018 at 20:27
--- NOTE | 2018-06-02 19:00 | ED_ITS ---
HPI - Abdominal Pain General Chief Complaint: Abdominal Pain Stated Complaint: fluid build up in abdomen,lots of swelling Time Seen by Provider: 06/02/18 18:51 Source: patient and old records reviewed Mode of arrival: ambulatory Limitations: no limitations History of Present Illness HPI narrative: Patient is a 58-year-old female with liver metastasis here for her 4th paracentesis this month. Previously was done on 05/26/2018 with got 5600cc off. She says she is having increasing abdominal pain and fluid. People are talking about putting in a pigtail catheter but no one has done so yet. She denies any fever or chills. She complains of only increased distention and pain. She was seen 5 days ago in [place] by her oncologist who is aware that her abdomen was distended, however she has had the paracentesis a few days ago it has gotten significantly worse since then. MD complaint: abdominal pain Location: diffuse Severity: moderate Quality: fullness Related Data Home Medications Medication Instructions Recorded Confirmed [CANNIBUS] 1 ea MISCELLANEOUS PRN PRN #0 11/16/17 05/06/18 atorvastatin [Lipitor] 20 mg PO QPM #0 11/16/17 05/19/18 hydrocodone-acetaminophen [Ladora] 1 tab PO Q8HP PRN #0 11/16/17 05/19/18 pramipexole [Mirapex] 0.25 mg PO QPM #0 11/16/17 06/02/18 everolimus (antineoplastic) 10 mg PO DAILY 05/06/18 06/02/18 [Afinitor] levothyroxine 50 mcg PO DAILY 05/06/18 05/06/18 lisinopril 40 mg PO DAILY 05/19/18 06/02/18 furosemide 40 mg PO DAILY 06/02/18 06/02/18 spironolactone 1 tab PO DAILY 06/02/18 06/02/18 Previous Rx's Medication Instructions Recorded oxycodone-acetaminophen 1 tab PO Q6H PRN #10 tab 06/02/18 Allergies Allergy/AdvReac Type Severity Reaction Status Date / Time No Known Drug Allergies Allergy Verified 06/02/18 16:18 Review of Systems Review of Systems All systems reviewed & are unremarkable except as noted in HPI and below Constitutional Denies chills, Denies fever(s), Denies lethargy and Denies weakness Eyes Denies loss of vision ENT Ears, Nose, Mouth, and Throat: Denies change in voice, Denies neck pain and Denies sore throat Cardiovascular Denies chest pain, Denies irregular heart rhythm, Denies lightheadedness, Denies palpitations, Denies dyspnea, Denies dyspnea on exertion and Denies orthopnea Respiratory Denies cough, Denies dyspnea, Denies dyspnea on exertion and Denies wheezing Gastrointestinal Gastrointestinal: Reports as per HPI Musculoskeletal Denies neck pain and Denies numbness Integumentary/Breasts Denies pruritus, Denies erythema, Denies rash and Denies wounds Neurologic Denies loss of vision, Denies numbness and Denies weakness Endocrine Denies palpitations Allergic/Immunologic Denies wheezing [facility] Medical History Pancreatic cancer metastasized to liver (Acute) Surgical History No pertinent past surgical history (Acute) Social History Smoking Status: Current every day smoker Exam Initial Vital Signs Initial Vital Signs: Vital Signs Temperature 97.5 F L 06/02/18 16:13 Pulse Rate 73 06/02/18 16:13 Respiratory Rate 22 06/02/18 16:13 Blood Pressure 127/87 06/02/18 16:13 Pulse Oximetry 92 06/02/18 16:13 GENERAL: Chronically-ill female with distended abdomen no acute distress walking and talking without difficulty HEENT: Head atraumatic,EOMI, pupils reactive, face symmetric CARDIOVASCULAR: Regular rate and rhythm without murmurs, rubs or gallops. RESPIRATORY: Breath sounds equal bilaterally, no wheezes rales or rhonchi. ABDOMEN: Distended, positive fluid wave no erythema no localization of pain EXTREMITIES: Normal range of motion, no clubbing or edema. Neurovascularly intact NEUROLOGICAL: Alert and oriented x4.Normal gait and speech. Cranial nerves II through XII grossly intact. SKIN: Warm, dry, no laceration, no petechiae, no rashes or lesions. Procedures Paracentesis Time Out Performed: Yes Local Anesthetic: lidocaine 1% Amount of anesthesia used (mL): 3 Fluid: cloudy Post Procedure Exam: awake, alert, normal BP, normal HR and normal SpO2 Patient Tolerated Procedure: Well Complications: none and other (Access site: Right lower quadrant. Needle one- step centesis catheter with introducer needle, fluid volume cloudy, 2500 cc, sent for cell count and culture) Course Orders Ordered: ED Orders 06/02/18 18:52 US abdomen limited Stat 06/02/18 18:55 Complete Blood Count AUTO DIFF Stat Comprehensive Metabolic Panel Stat Partial Thromboplastin Time Stat Prothrombin Time INR Stat 06/02/18 19:53 Blood Culture Stat 06/02/18 19:58 Lactate (Lactic Acid) Stat 06/02/18 20:11 Body Fluid Culture Stat Cell Count w Diff Body Fluid Stat Glucose Body Fluid Stat LDH Body Fluid Stat Total Protein Body Fluid Stat Discontinued Medications Hydromorphone HCl (Dilaudid) 1 mg IV NOW ONE Stop: 06/02/18 18:53 Last Admin: 06/02/18 19:17 Dose: 1 mg Ceftriaxone Sodium/Dextrose (Rocephin) 2 gm in 50 mls @ 100 mls/hr IV NOW ONE Stop: 06/02/18 20:45 Last Infusion: 06/02/18 21:15 Dose: 0 mls/hr Admin: 06/02/18 20:40 Dose: 100 mls/hr Oxycodone/Acetaminophen (Endocet 5/325 Prepack) 1 bottle MISC SEEINSTR ONE Stop: 06/02/18 21:54 Last Admin: 06/02/18 22:14 Dose: 1 bottle Vital Signs - 8 hr 06/02/18 19:05 06/02/18 20:26 06/02/18 21:48 Pulse Rate 93 H 100 H 94 H Respiratory Rate 16 18 18 Blood Pressure [Left Arm] 115/59 L 100/59 L 102/69 Pulse Oximetry 98 98 97 MDM - Abdominal Pain Medical Records Attestation: I reviewed the patient's medical records. Lab Data Attestation: I reviewed the patient's lab results. Result diagrams: 06/02/18 18:55 06/02/18 18:55 Lab Results 06/02/18 06/02/18 06/02/18 Range/Units 18:55 18:55 18:55 WBC 16.5 H (4.5-11.0) X10^3/uL RBC 4.64 (4.0-5.2) X10^6/uL Hgb 12.3 (12.0-16.0) g/dL Hct 37.6 (36-46) % MCV 81.1 (80-100) fL MCH 26.6 (26-34) PG MCHC 32.8 (30-36) % RDW 22.4 H (11.6-14.8) % Plt Count 488 H (150-400) X10^3/uL Neut % (Auto) 80.5 H (50-75) % Lymph % (Auto) 13.5 L (25-40) % [place] % (Auto) 4.5 (3-14) % Eos % (Auto) 0.1 L (2-4) % Baso % (Auto) 1.4 (0-2) % Neut # (Auto) 78466 H (4721-5491) /uL RBC Morphology See below Anisocytosis 2+ H PT 11.6 (10.1-12.7) SECONDS INR 1.1 (0.9-1.3) APTT 28 (26.4-36.2) SECONDS Sodium 137 (137-145) mmol/L Potassium 4.8 (3.4-5.1) mmol/L Chloride 100 (98-107) mmol/L Carbon Dioxide 24 (22-32) mmol/L BUN 31 H (7-17) mg/dL Creatinine 1.00 (0.52-1.04) mg/dL Estimated GFR 56.9 L (>60) mL/min BUN/Creatinine Ratio 31.0 H (6-22) Glucose 210 H (70-100) mg/dL Lactate (0.7-2.1) mmol/L Calcium 8.9 (8.4-10.2) mg/dL Total Bilirubin 0.9 (0.2-1.3) mg/dL AST 133 H (14-36) IU/L ALT 45 (9-52) IU/L Alkaline Phosphatase 524 H (38-126) U/L Total Protein 7.0 (6.3-8.2) g/dL Albumin 3.5 (3.5-5.0) g/dL Globulin 3.5 (1.7-4.1) g/dL Albumin/Globulin Ratio 1.0 (1.0-2.8) Fluid Color Fluid Appearance Fluid RBC /uL Fld Tot Nucleated Cell /uL Fluid Polynuclear WBCs % Fluid Mononuclear WBCs % Fluid Eosinophils % Fluid Other Cells % Body Fluid Clot Fluid Glucose mg/dL Fluid Total Protein g/dL Fluid LDH U/L 06/02/18 06/02/18 06/02/18 Range/Units 19:58 20:11 20:11 WBC (4.5-11.0) X10^3/uL RBC (4.0-5.2) X10^6/uL Hgb (12.0-16.0) g/dL Hct (36-46) % MCV (80-100) fL MCH (26-34) PG MCHC (30-36) % RDW (11.6-14.8) % Plt Count (150-400) X10^3/uL Neut % (Auto) (50-75) % Lymph % (Auto) (25-40) % [place] % (Auto) (3-14) % Eos % (Auto) (2-4) % Baso % (Auto) (0-2) % Neut # (Auto) (5079-1082) /uL RBC Morphology Anisocytosis PT (10.1-12.7) SECONDS INR (0.9-1.3) APTT (26.4-36.2) SECONDS Sodium (137-145) mmol/L Potassium (3.4-5.1) mmol/L Chloride (98-107) mmol/L Carbon Dioxide (22-32) mmol/L BUN (7-17) mg/dL Creatinine (0.52-1.04) mg/dL Estimated GFR (>60) mL/min BUN/Creatinine Ratio (6-22) Glucose (70-100) mg/dL Lactate 1.6 (0.7-2.1) mmol/L Calcium (8.4-10.2) mg/dL Total Bilirubin (0.2-1.3) mg/dL AST (14-36) IU/L ALT (9-52) IU/L Alkaline Phosphatase (38-126) U/L Total Protein (6.3-8.2) g/dL Albumin (3.5-5.0) g/dL Globulin (1.7-4.1) g/dL Albumin/Globulin Ratio (1.0-2.8) Fluid Color Yellow Fluid Appearance Slightly cloudy Fluid RBC < 1000 /uL Fld Tot Nucleated Cell 212 /uL Fluid Polynuclear WBCs 10 % Fluid Mononuclear WBCs 49 % Fluid Eosinophils 0 % Fluid Other Cells 41 % Body Fluid Clot No clots present Fluid Glucose 233 mg/dL Fluid Total Protein < 2.0 g/dL Fluid LDH 362 Cancelled U/L 06/02/18 Range/Units 20:11 WBC (4.5-11.0) X10^3/uL RBC (4.0-5.2) X10^6/uL Hgb (12.0-16.0) g/dL Hct (36-46) % MCV (80-100) fL MCH (26-34) PG MCHC (30-36) % RDW (11.6-14.8) % Plt Count (150-400) X10^3/uL Neut % (Auto) (50-75) % Lymph % (Auto) (25-40) % [place] % (Auto) (3-14) % Eos % (Auto) (2-4) % Baso % (Auto) (0-2) % Neut # (Auto) (5942-5688) /uL RBC Morphology Anisocytosis PT (10.1-12.7) SECONDS INR (0.9-1.3) APTT (26.4-36.2) SECONDS Sodium (137-145) mmol/L Potassium (3.4-5.1) mmol/L Chloride (98-107) mmol/L Carbon Dioxide (22-32) mmol/L BUN (7-17) mg/dL Creatinine (0.52-1.04) mg/dL Estimated GFR (>60) mL/min BUN/Creatinine Ratio (6-22) Glucose (70-100) mg/dL Lactate (0.7-2.1) mmol/L Calcium (8.4-10.2) mg/dL Total Bilirubin (0.2-1.3) mg/dL AST (14-36) IU/L ALT (9-52) IU/L Alkaline Phosphatase (38-126) U/L Total Protein (6.3-8.2) g/dL Albumin (3.5-5.0) g/dL Globulin (1.7-4.1) g/dL Albumin/Globulin Ratio (1.0-2.8) Fluid Color Fluid Appearance Fluid RBC /uL Fld Tot Nucleated Cell /uL Fluid Polynuclear WBCs % Fluid Mononuclear WBCs % Fluid Eosinophils % Fluid Other Cells % Body Fluid Clot Fluid Glucose Cancelled mg/dL Fluid Total Protein g/dL Fluid LDH U/L Imaging Data US - abdomen: Radiologist's impression: PROCEDURE: US ABDOMEN LIMITED INDICATIONS: ISAIAS SKIN FOR PARACENTESIS TECHNIQUE: Real-time focused scanning was performed of the abdomen, with image documentation. COMPARISON: [facility], , US ABDOMEN LIMITED, 05/19/2018, 18:51. FINDINGS: There is a large amount of ascites demonstrated in the abdomen. A large fluid pocket was localized and marked in the right lower quadrant and the presence of Dr. Kumar. IMPRESSION: 1. Limited study performed for localization for paracentesis. Dictated by: Gume Mccall M.D. on 06/02/2018 at 20:26 MDM Narrative Medical decision making narrative: Patient has increased leukocytosis from previous times. She denies fever or chills she has no her mental status. She does not have any other signs of infection including UTI like symptoms or respiratory like symptoms. His she has a normal lactic acid.. His paracentesis fluid sent to rule out spontaneous bacterial peritonitis. While waiting for a fluid to result she was empirically given 2 g of ceftriaxone. She has less than 250 neutrophils, and no other signs or symptoms to suggest SBP. She does have increased leukocytosis which is slightly worrisome however she has a normal lactic acid and no signs or symptoms of other Infection I discussed all findings with the patient and daughter, Education has been performed regarding treatment plan, diagnosis, warning signs and symptoms and all concerns have been addressed. Verbally agree with and understood all of the above. Discharge Plan Departure Patient Disposition: Home Clinical Impression: Ascites Discharge Date/Time: 06/02/18 22:21 Interventions: ED Discharge Assessment Last Done: 06/02/18 22:21 Instructions: DI for Ascites, DI for Abdominal Paracentesis Activity Restrictions/Additional Instructions: *You have been diagnosed with ascites *What to do: You do have elevated white count. At this time it does not appear that fluid in abdomen is infected. Continue to take temperature daily. Need to talk to oncology in regards too catheter or more frequent draining *Continue to take medications as directed Percocet 1-2 tabs every 6 hr if needed for pain *Follow up with your primary care provider in 2-3 days *Return to ER if you should have altered mental status, fever more than 100.4, increased pain, shortness of breath or any new, worsening or concerning symptoms CONTROLLED SUBSTANCE DISCHARGE (Narcotoic/benzodiazepine/Flexeril/Phenergan) 1. You have been prescribed narcotic medications, it does have acetaminophen/ Tylenol/paracetamol in it so do not take extra Tylenol or Tylenol containing products 2. Please understand that we cannot provide further refills of narcotics, benzodiazepines or controlled substances through the ED and her pain management will need to be through your provider. 3. While on these medications you cannot drive or operate heavy machinery. 4. You cannot sign legal documents or perform any duties such as this. 5. As long as you're taking opiate pain medications he should also be taking a stool softener such as Colace, Dulcolax, MiraLAX or prune juice, to help avoid constipation. Prescriptions: New oxycodone-acetaminophen 2.5-325 mg tablet 1 tab PO Q6H PRN (Reason: pain) Qty: 10 RF: 0 No Action atorvastatin [Lipitor] 20 MG tablet 20 mg PO QPM Qty: 0 RF: 0 hydrocodone-acetaminophen [Ladora] 10 MG/325 MG tablet 1 tab PO Q8HP PRN (Reason: Pain, Moderate) Qty: 0 RF: 0 pramipexole [Mirapex] 0.25 MG tablet 0.25 mg PO QPM Qty: 0 RF: 0 [CANNIBUS] 1 ea miscellaneous PRN PRN (Reason: misc) Qty: 0 RF: 0 levothyroxine 50 mcg tablet 50 mcg PO DAILY RF: 0 everolimus (antineoplastic) [Afinitor] 10 mg tablet 10 mg PO DAILY RF: 0 lisinopril 40 mg tablet 40 mg PO DAILY RF: 0 furosemide 40 mg tablet 40 mg PO DAILY RF: 0 spironolactone 25 mg tablet 1 tab PO DAILY RF: 0
[2018-06-02 19:05] VITALS: BP 115/59; PULSE 93; RESP 16; O2SAT 98
[2018-06-02] MEDS: HYDROMORPHONE 2 MG INJ 1 MG IV (19:17)
[2018-06-02 19:27] LABS: Add Manual Diff / Slide Review NO; Basophils Percent Auto 1.4 % (0-2); Eosinophils Percent Auto 0.1 % (2-4); Hematocrit 37.6 % (36-46); Hemoglobin 12.3 g/dL (12.0-16.0); Lymphocytes Percent Auto 13.5 % (25-40); Mean Corpuscular HGB Conc 32.8 % (30-36); Mean Corpuscular Hemoglobin 26.6 PG (26-34); Mean Corpuscular Volume 81.1 fL (80-100); Monocytes Percent Auto 4.5 % (3-14); Neutrophils Absolute Auto 13300 /uL (3000-5900); Neutrophils Percent Auto 80.5 % (50-75); Platelet Count 488 X10^3/uL (150-400); Red Blood Cell Count 4.64 X10^6/uL (4.0-5.2); Red Cell Distribution Width 22.4 % (11.6-14.8); White Blood Cell Count 16.5 X10^3/uL (4.5-11.0)
[2018-06-02 19:34] LABS: INR 1.1 (0.9-1.3); Prothrombin Time 11.6 SECONDS (10.1-12.7)
[2018-06-02 19:36] LABS: PTT Partial Thromboplastin Tim 28 SECONDS (26.4-36.2)
[2018-06-02 19:52] LABS: Alanine Aminotransferase 45 IU/L (9-52); Albumin 3.5 g/dL (3.5-5.0); Alkaline Phosphatase 524 U/L (38-126); Anisocytosis 2+; Aspartate Aminotransferase 133 IU/L (14-36); Bilirubin Total 0.9 mg/dL (0.2-1.3); Blood Urea Nitrogen 31 mg/dL (7-17); Calcium 8.9 mg/dL (8.4-10.2); Carbon Dioxide 24 mmol/L (22-32); Chloride 100 mmol/L (98-107); Estimated Glomerular Filt Rate 56.9 mL/min (>60); Globulin 3.5 g/dL (1.7-4.1); Glucose 210 mg/dL (70-100); HEMOLYSIS < 15 (0-50); Potassium 4.8 mmol/L (3.4-5.1); Sodium 137 mmol/L (137-145)
[2018-06-02 20:19] LABS: Lactate (Lactic Acid) 1.6 mmol/L (0.7-2.1)
[2018-06-02 20:26] VITALS: BP 100/59; PULSE 100; RESP 18; O2SAT 98
[2018-06-02 20:34] LABS: Body Fluid Red Blood Cells < 1000 /uL; Body Fluid Tot Nucleated Cells 212 /uL
[2018-06-02 20:36] LABS: Glucose Body Fluid 233 mg/dL; LDH Body Fluid 362 U/L; Total Protein Body Fluid < 2.0 g/dL
[2018-06-02] MEDS: CEFTRIAXONE 2 GM/50 ML FROZ.PIGGY IV (20:40)
[2018-06-02 20:55] LABS: Body Fluid Appearance SLIGHTLY CLOUDY; Body Fluid Clotted? NO CLOTS PRESENT; Body Fluid Color YELLOW
[2018-06-02 21:22] LABS: Eosinophils Body Fluid 0 %; Mononuclear WBC Body Fluid 49 %; Polynuclear WBC Body Fluid 10 %
[2018-06-02 21:28] LABS: Other Cells Body Fluid 41 %
[2018-06-02 21:48] VITALS: BP 102/69; PULSE 94; RESP 18; O2SAT 97
[2018-06-02] MEDS: OXYCODONE/APAP 5/325 PREPACK 1 BOTTLE MISC (22:14)
== END 2018-06-02 22:21 | disposition home or self-care (01) ==
PROVIDERS: Emergency Provider Emergency Medicine
DX: R18.8 Other ascites (principal)
CPT/HCPCS: 36415; 36591; 49082; 76705; 80053; 82945; 83605; 83615; 84157; 85025; 85610; 85730; 87040; 87070; 87075; 87205; 89051; 96365; 96375; 99283; 99284; J0696; J1170

== ENCOUNTER 2018-06-09 14:38 | Emergency (ER) | payer MEDICARE, SELFPAY ==
[2018-06-09 14:43] VITALS: BP 98/69; PULSE 99; RESP 22; TEMP 36.3
[2018-06-09 15:26] LABS: Add Manual Diff / Slide Review NO; Basophils Percent Auto 0.1 % (0-2); Eosinophils Percent Auto 0.1 % (2-4); Hemoglobin 12.1 g/dL (12.0-16.0); Lymphocytes Percent Auto 12.5 % (25-40); Mean Corpuscular HGB Conc 31.9 % (30-36); Mean Corpuscular Hemoglobin 26.5 PG (26-34); Mean Corpuscular Volume 83.1 fL (80-100); Monocytes Percent Auto 5.1 % (3-14); Neutrophils Absolute Auto 10300 /uL (3000-5900); Neutrophils Percent Auto 82.2 % (50-75); Platelet Count 603 X10^3/uL (150-400); Red Blood Cell Count 4.58 X10^6/uL (4.0-5.2); Red Cell Distribution Width 22.6 % (11.6-14.8); White Blood Cell Count 12.5 X10^3/uL (4.5-11.0)
[2018-06-09 15:28] LABS: INR 1.1 (0.9-1.3); Prothrombin Time 12.2 SECONDS (10.1-12.7)
[2018-06-09 15:30] LABS: PTT Partial Thromboplastin Tim 30 SECONDS (26.4-36.2)
[2018-06-09 15:32] LABS: Alanine Aminotransferase 49 IU/L (9-52); Albumin 3.5 g/dL (3.5-5.0); Albumin Globulin Ratio 0.9 (1.0-2.8); Alkaline Phosphatase 702 U/L (38-126); Aspartate Aminotransferase 94 IU/L (14-36); BUN Creatinine Ratio 39.2 (6-22); Blood Urea Nitrogen 51 mg/dL (7-17); Carbon Dioxide 25 mmol/L (22-32); Chloride 99 mmol/L (98-107); Estimated Glomerular Filt Rate 42.1 mL/min (>60); Globulin 3.8 g/dL (1.7-4.1); Glucose 223 mg/dL (70-100); HEMOLYSIS < 15 (0-50); Lipase 76 U/L (23-300); Potassium 4.6 mmol/L (3.4-5.1); Sodium 138 mmol/L (137-145); Total Protein 7.3 g/dL (6.3-8.2)
[2018-06-09 15:33] VITALS: BP 112/78; PULSE 94; RESP 22; O2SAT 94
--- NOTE | 2018-06-09 15:36 | ED.ABDPAIN ---
HPI - Abdominal Pain General Chief Complaint: Abdominal Pain Stated Complaint: stomach bloating Time Seen by Provider: 06/09/18 15:33 Source: patient Mode of arrival: ambulatory Limitations: no limitations History of Present Illness HPI narrative: 50-year-old female, Daily smoker, with known pancreatic and liver CA presents to the emergency department with a chief complaint a recurrence of generalized abdominal pain and ascites. She has had frequent visits to the emergency department requiring paracentesis. There has been some discussion about getting a pigtail catheter but that is yet to happen. She was last here few days ago. She denies any fever chills nor nausea or vomiting. She admits to a swollen abdomen that is more painful with motion and improves with rest. MD complaint: abdominal pain Onset (ago): month(s) Pain Consistency: constant Location: diffuse Severity: moderate Quality: cramping and stabbing Radiation: none Migration to: no migration Exacerbating factors: nothing Associated symptoms: nausea Related Data Home Medications Medication Instructions Recorded Confirmed [CANNIBUS] 1 ea MISCELLANEOUS PRN PRN #0 11/16/17 05/06/18 atorvastatin [Lipitor] 20 mg PO QPM #0 11/16/17 05/19/18 hydrocodone-acetaminophen [Stryker] 1 tab PO Q8HP PRN #0 11/16/17 05/19/18 pramipexole [Mirapex] 0.25 mg PO QPM #0 11/16/17 06/09/18 everolimus (antineoplastic) 10 mg PO DAILY 05/06/18 06/09/18 [Afinitor] levothyroxine 50 mcg PO DAILY 05/06/18 05/06/18 lisinopril 40 mg PO DAILY 05/19/18 06/09/18 furosemide 40 mg PO DAILY 06/02/18 06/09/18 spironolactone 1 tab PO DAILY 06/02/18 06/09/18 Previous Rx's Medication Instructions Recorded oxycodone-acetaminophen 1 tab PO Q6H PRN #10 tab 06/02/18 Allergies Allergy/AdvReac Type Severity Reaction Status Date / Time No Known Drug Allergies Allergy Verified 06/02/18 16:18 Review of Systems Review of Systems All systems reviewed & are unremarkable except as noted in HPI and below Constitutional Denies chills, Denies fever(s), Denies lethargy and Denies weakness Eyes Denies change in vision, Denies eye discharge, Denies irritation and Denies loss of vision ENT Ears, Nose, Mouth, and Throat: Denies change in voice, Denies neck pain and Denies sore throat Cardiovascular Denies chest pain, Denies irregular heart rhythm, Denies lightheadedness, Denies palpitations, Denies dyspnea, Denies dyspnea on exertion and Denies orthopnea Respiratory Denies cough, Denies dyspnea, Denies dyspnea on exertion and Denies wheezing Gastrointestinal Gastrointestinal: Reports abdominal pain, Denies change in bowel habits, Denies diarrhea, Denies nausea and Denies vomiting Genitourinary Denies hematuria, Denies flank pain, Denies urinary incontinence and Denies urinary urgency Musculoskeletal Denies neck pain Integumentary/Breasts Denies pruritus, Denies erythema, Denies rash and Denies wounds Neurologic Denies confusion, Denies loss of vision and Denies weakness Psychiatric Denies anxiety, Denies confusion, Denies depression, Denies homicidal ideation and Denies suicidal ideation Endocrine Denies palpitations Hematologic/Lymphatic Denies easy bruising Allergic/Immunologic Denies wheezing [facility] Medical History Pancreatic cancer metastasized to liver (Acute) Surgical History No pertinent past surgical history (Acute) Social History Smoking Status: Current every day smoker Exam Narrative Exam Narrative: GENERAL: 58-year-old female obviously in distress, complaining of abdominal pain. She is chronically ill with temporal wasting and appears unwell HEAD: Atraumatic. Normocephalic. No temporal or scalp tenderness. EYES: Pupils equal round and reactive. Extraocular motions intact. No scleral icterus. No injection or drainage. ENT: Nose without bleeding, purulent drainage or septal hematoma. Throat without erythema, tonsillar hypertrophy or exudate. Uvula midline. Airway patent. NECK: Trachea midline. No JVD or lymphadenopathy. Supple, nontender, no meningeal signs. CARDIOVASCULAR: Regular rate and rhythm without murmurs, gallops, or rubs. RESPIRATORY: Clear to auscultation. Breath sounds equal bilaterally. No wheezes, rales, or rhonchi. GASTROINTESTINAL: firm distended abdomen with ascites and fluid wave. No erythema nor warmth. No hepato-splenomegaly, or palpable masses. No guarding. EXTREMITIES: No clubbing, cyanosis, or edema. No joint tenderness, effusion, or edema noted. BACK: Nontender without deformity or crepitance. No flank tenderness. NEURO: AOx3. SKIN: No rash or erythema. Initial Vital Signs Initial Vital Signs: Vital Signs Temperature 97.4 F L 06/09/18 14:43 Pulse Rate 99 H 06/09/18 14:43 Respiratory Rate 22 06/09/18 14:43 Blood Pressure 98/69 06/09/18 14:43 Course Orders Ordered: ED Orders 06/09/18 15:00 Ammonia (NH3) Stat Complete Blood Count AUTO DIFF Stat Comprehensive Metabolic Panel Stat Lipase Stat Partial Thromboplastin Time Stat Prothrombin Time INR Stat 06/09/18 15:50 US paracentesis Stat Reevaluation(s) Reevaluation #1: patient feels much better upon return to the department. They took 5.5 L off and she reports marked improvement in her symptoms. There is no active bleeding, abdomen is soft and nontender. Vital signs are stable and she is appropriate for discharge Consultations Consultation #1: patient sent to DI for ultrasound and therapeutic paracentesis Vital Signs - 8 hr 06/09/18 14:43 06/09/18 15:33 06/09/18 17:04 Temperature 97.4 F L Pulse Rate 99 H 94 H 68 Respiratory Rate 22 22 16 Blood Pressure 98/69 Blood Pressure [Right Arm] 112/78 116/78 Pulse Oximetry 94 97 06/09/18 17:41 Temperature Pulse Rate 100 H Respiratory Rate 18 Blood Pressure 115/66 Blood Pressure [Right Arm] Pulse Oximetry 98 MDM - Abdominal Pain Lab Data Result diagrams: 06/09/18 15:00 06/09/18 15:00 Lab Results 06/09/18 06/09/18 06/09/18 Range/Units 15:00 15:00 15:00 WBC 12.5 H (4.5-11.0) X10^3/uL RBC 4.58 (4.0-5.2) X10^6/uL Hgb 12.1 (12.0-16.0) g/dL Hct 38.0 (36-46) % MCV 83.1 (80-100) fL MCH 26.5 (26-34) PG MCHC 31.9 (30-36) % RDW 22.6 H (11.6-14.8) % Plt Count 603 H (150-400) X10^3/uL Neut % (Auto) 82.2 H (50-75) % Lymph % (Auto) 12.5 L (25-40) % Carbon % (Auto) 5.1 (3-14) % Eos % (Auto) 0.1 L (2-4) % Baso % (Auto) 0.1 (0-2) % Neut # (Auto) 53488 H (4331-1835) /uL Platelet Estimate Increased on smear RBC Morphology See below Anisocytosis 2+ H Macrocytosis 1+ H PT 12.2 (10.1-12.7) SECONDS INR 1.1 (0.9-1.3) APTT 30 D (26.4-36.2) SECONDS Sodium 138 (137-145) mmol/L Potassium 4.6 (3.4-5.1) mmol/L Chloride 99 (98-107) mmol/L Carbon Dioxide 25 (22-32) mmol/L BUN 51 H (7-17) mg/dL Creatinine 1.30 H (0.52-1.04) mg/dL Estimated GFR 42.1 L (>60) mL/min BUN/Creatinine Ratio 39.2 H (6-22) Glucose 223 H (70-100) mg/dL Calcium 9.0 (8.4-10.2) mg/dL Total Bilirubin 1.0 (0.2-1.3) mg/dL AST 94 H (14-36) IU/L ALT 49 (9-52) IU/L Alkaline Phosphatase 702 H (38-126) U/L Ammonia (9-30) umol/L Total Protein 7.3 (6.3-8.2) g/dL Albumin 3.5 (3.5-5.0) g/dL Globulin 3.8 (1.7-4.1) g/dL Albumin/Globulin Ratio 0.9 L (1.0-2.8) Lipase 76 (23-300) U/L 06/09/18 Range/Units 15:00 WBC (4.5-11.0) X10^3/uL RBC (4.0-5.2) X10^6/uL Hgb (12.0-16.0) g/dL Hct (36-46) % MCV (80-100) fL MCH (26-34) PG MCHC (30-36) % RDW (11.6-14.8) % Plt Count (150-400) X10^3/uL Neut % (Auto) (50-75) % Lymph % (Auto) (25-40) % Carbon % (Auto) (3-14) % Eos % (Auto) (2-4) % Baso % (Auto) (0-2) % Neut # (Auto) (5463-5352) /uL Platelet Estimate RBC Morphology Anisocytosis Macrocytosis PT (10.1-12.7) SECONDS INR (0.9-1.3) APTT (26.4-36.2) SECONDS Sodium (137-145) mmol/L Potassium (3.4-5.1) mmol/L Chloride (98-107) mmol/L Carbon Dioxide (22-32) mmol/L BUN (7-17) mg/dL Creatinine (0.52-1.04) mg/dL Estimated GFR (>60) mL/min BUN/Creatinine Ratio (6-22) Glucose (70-100) mg/dL Calcium (8.4-10.2) mg/dL Total Bilirubin (0.2-1.3) mg/dL AST (14-36) IU/L ALT (9-52) IU/L Alkaline Phosphatase (38-126) U/L Ammonia 25.0 (9-30) umol/L Total Protein (6.3-8.2) g/dL Albumin (3.5-5.0) g/dL Globulin (1.7-4.1) g/dL Albumin/Globulin Ratio (1.0-2.8) Lipase (23-300) U/L Discharge Plan Departure Patient Disposition: Home Clinical Impression: Ascites, No pertinent past surgical history Discharge Date/Time: 06/09/18 17:45 Interventions: ED Discharge Assessment Last Done: 06/09/18 17:41 Instructions: Ascites, Abdominal Paracentesis Activity Restrictions/Additional Instructions: *You have been diagnosed with [ ascites, status post therapeutic paracentesis ] *What to do: *Take medications as directed *Follow up with your primary care provider in 2-3 days, call for an appointment. Let them know you were seen in the Emergency Department and that we ask that you be seen in follow up *Return to ER if you should have any new, worsening or concerning symptoms Prescriptions: No Action atorvastatin [Lipitor] 20 MG tablet 20 mg PO QPM Qty: 0 RF: 0 hydrocodone-acetaminophen [Stryker] 10 MG/325 MG tablet 1 tab PO Q8HP PRN (Reason: Pain, Moderate) Qty: 0 RF: 0 pramipexole [Mirapex] 0.25 MG tablet 0.25 mg PO QPM Qty: 0 RF: 0 [CANNIBUS] 1 ea miscellaneous PRN PRN (Reason: misc) Qty: 0 RF: 0 levothyroxine 50 mcg tablet 50 mcg PO DAILY RF: 0 everolimus (antineoplastic) [Afinitor] 10 mg tablet 10 mg PO DAILY RF: 0 lisinopril 40 mg tablet 40 mg PO DAILY RF: 0 furosemide 40 mg tablet 40 mg PO DAILY RF: 0 spironolactone 25 mg tablet 1 tab PO DAILY RF: 0 oxycodone-acetaminophen 2.5-325 mg tablet 1 tab PO Q6H PRN (Reason: pain) Qty: 10 RF: 0
[2018-06-09 15:45] LABS: Anisocytosis 2+; Macrocytosis 1+
--- NOTE | 2018-06-09 15:50 | DI.US.S_ITS ---
PROCEDURE: US PARACENTESIS INDICATIONS: ascites, pain, SOB TECHNIQUE: The indications, alternatives, benefits, risks, and complications of the procedure were explained to the patient. Written informed consent was obtained and placed in the chart. The abdomen and pelvis were examined sonographically, and an appropriate site was chosen for paracentesis. The skin was prepared and draped in the usual sterile fashion, and 1% lidocaine was infiltrated from the skin down through the peritoneal surface. A 19-gauge catheter-covered needle was then introduced into the peritoneal space, the catheter was advanced and the needle was withdrawn, and thereafter peritoneal fluid was withdrawn. The catheter was then removed and a dressing was applied. The fluid was discarded if the clinician did not order diagnostic testing of the fluid. COMPARISON: [facility], , PARACENTESIS, 05/26/2018, 15:21. FINDINGS: Access site: Midline Needle: One-Step centesis catheter with introducer needle. Fluid volume and description: 5600 cc of serous fluid Fluid sent for diagnostic testing: Not requested. Medications: 1% lidocaine for local anaesthesia. Complications: None. IMPRESSION: Successful ultrasound-guided paracentesis. Dictated by: Clint Guillen M.D. on 06/09/2018 at 17:02 Approved by: Clint Guillen M.D. on 06/09/2018 at 17:03
[2018-06-09 15:55] LABS: Platelet Estimate Increased on smear
--- NOTE | 2018-06-09 16:43 | ED_ITS ---
HPI - Abdominal Pain General Chief Complaint: Abdominal Pain Stated Complaint: stomach bloating Time Seen by Provider: 06/09/18 15:33 Source: patient Mode of arrival: ambulatory Limitations: no limitations History of Present Illness HPI narrative: 50-year-old female, Daily smoker, with known pancreatic and liver CA presents to the emergency department with a chief complaint a recurrence of generalized abdominal pain and ascites. She has had frequent visits to the emergency department requiring paracentesis. There has been some discussion about getting a pigtail catheter but that is yet to happen. She was last here few days ago. She denies any fever chills nor nausea or vomiting. She admits to a swollen abdomen that is more painful with motion and improves with rest. MD complaint: abdominal pain Onset (ago): month(s) Pain Consistency: constant Location: diffuse Severity: moderate Quality: cramping and stabbing Radiation: none Migration to: no migration Exacerbating factors: nothing Associated symptoms: nausea Related Data Home Medications Medication Instructions Recorded Confirmed [CANNIBUS] 1 ea MISCELLANEOUS PRN PRN #0 11/16/17 05/06/18 atorvastatin [Lipitor] 20 mg PO QPM #0 11/16/17 05/19/18 hydrocodone-acetaminophen [Hawthorne] 1 tab PO Q8HP PRN #0 11/16/17 05/19/18 pramipexole [Mirapex] 0.25 mg PO QPM #0 11/16/17 06/09/18 everolimus (antineoplastic) 10 mg PO DAILY 05/06/18 06/09/18 [Afinitor] levothyroxine 50 mcg PO DAILY 05/06/18 05/06/18 lisinopril 40 mg PO DAILY 05/19/18 06/09/18 furosemide 40 mg PO DAILY 06/02/18 06/09/18 spironolactone 1 tab PO DAILY 06/02/18 06/09/18 Previous Rx's Medication Instructions Recorded oxycodone-acetaminophen 1 tab PO Q6H PRN #10 tab 06/02/18 Allergies Allergy/AdvReac Type Severity Reaction Status Date / Time No Known Drug Allergies Allergy Verified 06/02/18 16:18 Review of Systems Review of Systems All systems reviewed & are unremarkable except as noted in HPI and below Constitutional Denies chills, Denies fever(s), Denies lethargy and Denies weakness Eyes Denies change in vision, Denies eye discharge, Denies irritation and Denies loss of vision ENT Ears, Nose, Mouth, and Throat: Denies change in voice, Denies neck pain and Denies sore throat Cardiovascular Denies chest pain, Denies irregular heart rhythm, Denies lightheadedness, Denies palpitations, Denies dyspnea, Denies dyspnea on exertion and Denies orthopnea Respiratory Denies cough, Denies dyspnea, Denies dyspnea on exertion and Denies wheezing Gastrointestinal Gastrointestinal: Reports abdominal pain, Denies change in bowel habits, Denies diarrhea, Denies nausea and Denies vomiting Genitourinary Denies hematuria, Denies flank pain, Denies urinary incontinence and Denies urinary urgency Musculoskeletal Denies neck pain Integumentary/Breasts Denies pruritus, Denies erythema, Denies rash and Denies wounds Neurologic Denies confusion, Denies loss of vision and Denies weakness Psychiatric Denies anxiety, Denies confusion, Denies depression, Denies homicidal ideation and Denies suicidal ideation Endocrine Denies palpitations Hematologic/Lymphatic Denies easy bruising Allergic/Immunologic Denies wheezing [facility] Medical History Pancreatic cancer metastasized to liver (Acute) Surgical History No pertinent past surgical history (Acute) Social History Smoking Status: Current every day smoker Exam Narrative Exam Narrative: GENERAL: 58-year-old female obviously in distress, complaining of abdominal pain. She is chronically ill with temporal wasting and appears unwell HEAD: Atraumatic. Normocephalic. No temporal or scalp tenderness. EYES: Pupils equal round and reactive. Extraocular motions intact. No scleral icterus. No injection or drainage. ENT: Nose without bleeding, purulent drainage or septal hematoma. Throat without erythema, tonsillar hypertrophy or exudate. Uvula midline. Airway patent. NECK: Trachea midline. No JVD or lymphadenopathy. Supple, nontender, no meningeal signs. CARDIOVASCULAR: Regular rate and rhythm without murmurs, gallops, or rubs. RESPIRATORY: Clear to auscultation. Breath sounds equal bilaterally. No wheezes , rales, or rhonchi. GASTROINTESTINAL: firm distended abdomen with ascites and fluid wave. No erythema nor warmth. No hepato-splenomegaly, or palpable masses. No guarding. EXTREMITIES: No clubbing, cyanosis, or edema. No joint tenderness, effusion, or edema noted. BACK: Nontender without deformity or crepitance. No flank tenderness. NEURO: AOx3. SKIN: No rash or erythema. Initial Vital Signs Initial Vital Signs: Vital Signs Temperature 97.4 F L 06/09/18 14:43 Pulse Rate 99 H 06/09/18 14:43 Respiratory Rate 22 06/09/18 14:43 Blood Pressure 98/69 06/09/18 14:43 Course Orders Ordered: ED Orders 06/09/18 15:00 Ammonia (NH3) Stat Complete Blood Count AUTO DIFF Stat Comprehensive Metabolic Panel Stat Lipase Stat Partial Thromboplastin Time Stat Prothrombin Time INR Stat 06/09/18 15:50 US paracentesis Stat Reevaluation(s) Reevaluation #1: patient feels much better upon return to the department. They took 5.5 L off and she reports marked improvement in her symptoms. There is no active bleeding, abdomen is soft and nontender. Vital signs are stable and she is appropriate for discharge Consultations Consultation #1: patient sent to DI for ultrasound and therapeutic paracentesis Vital Signs - 8 hr 06/09/18 14:43 06/09/18 15:33 06/09/18 17:04 Temperature 97.4 F L Pulse Rate 99 H 94 H 68 Respiratory Rate 22 22 16 Blood Pressure 98/69 Blood Pressure [Right Arm] 112/78 116/78 Pulse Oximetry 94 97 06/09/18 17:41 Temperature Pulse Rate 100 H Respiratory Rate 18 Blood Pressure 115/66 Blood Pressure [Right Arm] Pulse Oximetry 98 MDM - Abdominal Pain Lab Data Result diagrams: 06/09/18 15:00 06/09/18 15:00 Lab Results 06/09/18 06/09/18 06/09/18 Range/Units 15:00 15:00 15:00 WBC 12.5 H (4.5-11.0) X10^3/uL RBC 4.58 (4.0-5.2) X10^6/uL Hgb 12.1 (12.0-16.0) g/dL Hct 38.0 (36-46) % MCV 83.1 (80-100) fL MCH 26.5 (26-34) PG MCHC 31.9 (30-36) % RDW 22.6 H (11.6-14.8) % Plt Count 603 H (150-400) X10^3/uL Neut % (Auto) 82.2 H (50-75) % Lymph % (Auto) 12.5 L (25-40) % [place] % (Auto) 5.1 (3-14) % Eos % (Auto) 0.1 L (2-4) % Baso % (Auto) 0.1 (0-2) % Neut # (Auto) 22503 H (6971-6400) /uL Platelet Estimate Increased on smear RBC Morphology See below Anisocytosis 2+ H Macrocytosis 1+ H PT 12.2 (10.1-12.7) SECONDS INR 1.1 (0.9-1.3) APTT 30 D (26.4-36.2) SECONDS Sodium 138 (137-145) mmol/L Potassium 4.6 (3.4-5.1) mmol/L Chloride 99 (98-107) mmol/L Carbon Dioxide 25 (22-32) mmol/L BUN 51 H (7-17) mg/dL Creatinine 1.30 H (0.52-1.04) mg/dL Estimated GFR 42.1 L (>60) mL/min BUN/Creatinine Ratio 39.2 H (6-22) Glucose 223 H (70-100) mg/dL Calcium 9.0 (8.4-10.2) mg/dL Total Bilirubin 1.0 (0.2-1.3) mg/dL AST 94 H (14-36) IU/L ALT 49 (9-52) IU/L Alkaline Phosphatase 702 H (38-126) U/L Ammonia (9-30) umol/L Total Protein 7.3 (6.3-8.2) g/dL Albumin 3.5 (3.5-5.0) g/dL Globulin 3.8 (1.7-4.1) g/dL Albumin/Globulin Ratio 0.9 L (1.0-2.8) Lipase 76 (23-300) U/L 06/09/18 Range/Units 15:00 WBC (4.5-11.0) X10^3/uL RBC (4.0-5.2) X10^6/uL Hgb (12.0-16.0) g/dL Hct (36-46) % MCV (80-100) fL MCH (26-34) PG MCHC (30-36) % RDW (11.6-14.8) % Plt Count (150-400) X10^3/uL Neut % (Auto) (50-75) % Lymph % (Auto) (25-40) % [place] % (Auto) (3-14) % Eos % (Auto) (2-4) % Baso % (Auto) (0-2) % Neut # (Auto) (9248-3634) /uL Platelet Estimate RBC Morphology Anisocytosis Macrocytosis PT (10.1-12.7) SECONDS INR (0.9-1.3) APTT (26.4-36.2) SECONDS Sodium (137-145) mmol/L Potassium (3.4-5.1) mmol/L Chloride (98-107) mmol/L Carbon Dioxide (22-32) mmol/L BUN (7-17) mg/dL Creatinine (0.52-1.04) mg/dL Estimated GFR (>60) mL/min BUN/Creatinine Ratio (6-22) Glucose (70-100) mg/dL Calcium (8.4-10.2) mg/dL Total Bilirubin (0.2-1.3) mg/dL AST (14-36) IU/L ALT (9-52) IU/L Alkaline Phosphatase (38-126) U/L Ammonia 25.0 (9-30) umol/L Total Protein (6.3-8.2) g/dL Albumin (3.5-5.0) g/dL Globulin (1.7-4.1) g/dL Albumin/Globulin Ratio (1.0-2.8) Lipase (23-300) U/L Discharge Plan Departure Patient Disposition: Home Clinical Impression: Ascites, No pertinent past surgical history Discharge Date/Time: 06/09/18 17:45 Interventions: ED Discharge Assessment Last Done: 06/09/18 17:41 Instructions: Ascites, Abdominal Paracentesis Activity Restrictions/Additional Instructions: *You have been diagnosed with [ ascites, status post therapeutic paracentesis ] *What to do: *Take medications as directed *Follow up with your primary care provider in 2-3 days, call for an appointment. Let them know you were seen in the Emergency Department and that we ask that you be seen in follow up *Return to ER if you should have any new, worsening or concerning symptoms Prescriptions: No Action atorvastatin [Lipitor] 20 MG tablet 20 mg PO QPM Qty: 0 RF: 0 hydrocodone-acetaminophen [Hawthorne] 10 MG/325 MG tablet 1 tab PO Q8HP PRN (Reason: Pain, Moderate) Qty: 0 RF: 0 pramipexole [Mirapex] 0.25 MG tablet 0.25 mg PO QPM Qty: 0 RF: 0 [CANNIBUS] 1 ea miscellaneous PRN PRN (Reason: misc) Qty: 0 RF: 0 levothyroxine 50 mcg tablet 50 mcg PO DAILY RF: 0 everolimus (antineoplastic) [Afinitor] 10 mg tablet 10 mg PO DAILY RF: 0 lisinopril 40 mg tablet 40 mg PO DAILY RF: 0 furosemide 40 mg tablet 40 mg PO DAILY RF: 0 spironolactone 25 mg tablet 1 tab PO DAILY RF: 0 oxycodone-acetaminophen 2.5-325 mg tablet 1 tab PO Q6H PRN (Reason: pain) Qty: 10 RF: 0
[2018-06-09 17:04] VITALS: BP 116/78; PULSE 68; RESP 16; O2SAT 97
[2018-06-09 17:41] VITALS: BP 115/66; PULSE 100; RESP 18; O2SAT 98
== END 2018-06-09 17:45 | disposition home or self-care (01) ==
PROVIDERS: Emergency Provider Emergency Medicine
DX: R18.8 Other ascites (principal)
CPT/HCPCS: 36591; 49083; 80053; 82140; 83690; 85025; 85610; 85730; 99282; 99284

== ENCOUNTER 2018-06-19 11:22 | Emergency (ER) | payer MEDICARE, SELFPAY ==
[2018-06-19 11:35] VITALS: BP 100/63; PULSE 97; RESP 17; TEMP 36.5; O2SAT 97
--- NOTE | 2018-06-19 14:28 | ED.ABDPAIN ---
HPI - Abdominal Pain <CAESAR Jones - Last Filed: 06/19/18 21:40> General Chief Complaint: Abdominal Pain Stated Complaint: SENT BY [facility], TO CHECK KIDNEY FUNCTION Time Seen by Provider: 06/19/18 14:28 Source: patient Mode of arrival: ambulatory Limitations: no limitations History of Present Illness HPI narrative: 58-year-old female with history of pancreatic cancer and liver metastasis that as an everyday smoker here due to being told to come in by Oncology down in [place] for further evaluation. She was being worked up for a new cancer treatment and was found that her creatinine was elevated along with her GFR being low. She was sent to the emergency room to look at her kidneys and repeat labs. She denies any urinary symptoms. No fevers or chills. No pain to the flank area. She denies any hematuria. She states she actually feels pretty good today. No other concerns or complaints. Related Data Home Medications Medication Instructions Recorded Confirmed [CANNIBUS] 1 ea MISCELLANEOUS PRN PRN #0 11/16/17 06/19/18 atorvastatin [Lipitor] 20 mg PO QPM #0 11/16/17 06/19/18 hydrocodone-acetaminophen [Bradley] 1 tab PO Q8HP PRN #0 11/16/17 06/19/18 pramipexole [Mirapex] 0.25 mg PO QPM #0 11/16/17 06/19/18 everolimus (antineoplastic) 10 mg PO DAILY 05/06/18 06/19/18 [Afinitor] levothyroxine 50 mcg PO DAILY 05/06/18 06/19/18 lisinopril 40 mg PO DAILY 05/19/18 06/19/18 furosemide 40 mg PO DAILY 06/02/18 06/19/18 spironolactone 1 tab PO DAILY 06/02/18 06/19/18 Previous Rx's Medication Instructions Recorded oxycodone-acetaminophen 1 tab PO Q6H PRN #10 tab 06/02/18 ciprofloxacin HCl 500 mg PO BID #14 tab 06/19/18 Allergies Allergy/AdvReac Type Severity Reaction Status Date / Time No Known Drug Allergies Allergy Verified 06/02/18 16:18 Review of Systems <CAESAR Jones - Last Filed: 06/19/18 21:40> Review of Systems Here for further evaluation of kidney function Constitutional Denies chills, Denies fever(s), Denies lethargy and Denies weakness Eyes Denies change in vision, Denies eye discharge, Denies irritation and Denies loss of vision ENT Ears, Nose, Mouth, and Throat: Denies change in voice, Denies neck pain, Denies sore throat and Denies throat swelling Cardiovascular Denies chest pain, Denies irregular heart rhythm, Denies lightheadedness, Denies palpitations and Denies orthopnea Respiratory Denies wheezing Gastrointestinal Gastrointestinal: Denies abdominal pain, Denies change in bowel habits, Denies diarrhea, Denies nausea and Denies vomiting Genitourinary Denies hematuria, Denies flank pain, Denies urinary incontinence and Denies urinary urgency Musculoskeletal Denies neck pain Integumentary/Breasts Denies pruritus, Denies erythema, Denies rash and Denies wounds Neurologic Denies loss of vision and Denies weakness Endocrine Denies palpitations Allergic/Immunologic Denies urticaria, Denies throat swelling and Denies wheezing Exam <CAESAR Jones - Last Filed: 06/19/18 21:40> Initial Vital Signs Initial Vital Signs: Vital Signs Temperature 97.7 F 06/19/18 11:35 Pulse Rate 97 H 06/19/18 11:35 Respiratory Rate 17 06/19/18 11:35 Blood Pressure 100/63 06/19/18 11:35 Pulse Oximetry 97 06/19/18 11:35 Const General: cooperative and well developed Nutritional Appearance: well nourished Orientation: alert, awake, oriented x3 and not confused [facility] Mouth: oral mucosae normal and moist mucous membranes Eyes Conjunctivae: conjunctivae normal Sclera: sclerae normal Pupils: PERRL EOM: EOM intact bilaterally Resp Effort & Inspection: normal respiratory effort, able to speak in complete sentences, no respiratory distress and no use of accessory muscles Auscultation: clear to auscultation bilaterally, no rales, no rhonchi and no wheezes Cardio Rate: regular rate Rhythm: regular rhythm Heart Sounds: no click, no gallops, no murmurs and no rubs Pulses: normal peripheral pulses GI Inspection: non-distended Palpation: soft, no hepatosplenomegaly, No guarding, No pulsatile mass, No tender and ascites Auscultation: normal bowel sounds General: No CVA tenderness Skin General: no rashes or lesions noted, No jaundice and No petechiae Neuro General: alert, oriented x3, gait normal and no focal motor deficits Speech: speech normal <Rocco Deng DO - Last Filed: 06/19/18 22:45> Initial Vital Signs Initial Vital Signs: Vital Signs Temperature 97.7 F 06/19/18 11:35 Pulse Rate 97 H 06/19/18 11:35 Respiratory Rate 17 06/19/18 11:35 Blood Pressure 100/63 06/19/18 11:35 Pulse Oximetry 97 06/19/18 11:35 Course <CAESAR Jones - Last Filed: 06/19/18 21:40> Orders Ordered: ED Orders 06/19/18 14:56 CT abdomen pelvis wo con Stat 06/19/18 15:10 Complete Blood Count AUTO DIFF Stat Comprehensive Metabolic Panel Stat 06/19/18 17:46 US renal complete Stat 06/19/18 19:30 Urine Culture Stat Urine Microscopic Stat Discontinued Medications Hydrocodone Bitart/Acetaminophen (Bradley 5/325) 1 tab PO NOW ONE Stop: 06/19/18 18:58 Last Admin: 06/19/18 19:01 Dose: 1 tab Ciprofloxacin (Cipro) 500 mg PO NOW ONE Stop: 06/19/18 20:48 Last Admin: 06/19/18 20:55 Dose: 500 mg Vital Signs - 8 hr 06/19/18 16:40 06/19/18 19:01 06/19/18 21:04 Pulse Rate 96 H 93 H 85 Respiratory Rate 16 17 15 Blood Pressure 87/51 L Blood Pressure [Right Arm] 84/47 L 95/55 L Pulse Oximetry 100 98 99 <Rocco Deng DO - Last Filed: 06/19/18 22:45> Orders Ordered: ED Orders 06/19/18 14:56 CT abdomen pelvis wo con Stat 06/19/18 15:10 Complete Blood Count AUTO DIFF Stat Comprehensive Metabolic Panel Stat 06/19/18 17:46 US renal complete Stat 06/19/18 19:30 Urine Culture Stat Urine Microscopic Stat Discontinued Medications Hydrocodone Bitart/Acetaminophen (Bradley 5/325) 1 tab PO NOW ONE Stop: 06/19/18 18:58 Last Admin: 06/19/18 19:01 Dose: 1 tab Ciprofloxacin (Cipro) 500 mg PO NOW ONE Stop: 06/19/18 20:48 Last Admin: 06/19/18 20:55 Dose: 500 mg Vital Signs - 8 hr 06/19/18 16:40 06/19/18 19:01 06/19/18 21:04 Pulse Rate 96 H 93 H 85 Respiratory Rate 16 17 15 Blood Pressure 87/51 L Blood Pressure [Right Arm] 84/47 L 95/55 L Pulse Oximetry 100 98 99 MDM - Abdominal Pain <CAESAR Jones - Last Filed: 06/19/18 21:40> Lab Data Result diagrams: 06/19/18 15:10 06/19/18 15:10 Lab Results 06/19/18 06/19/18 06/19/18 Range/Units 15:10 15:10 19:30 WBC 15.1 H (4.5-11.0) X10^3/uL RBC 4.82 (4.0-5.2) X10^6/uL Hgb 13.1 (12.0-16.0) g/dL Hct 40.1 (36-46) % MCV 83.2 (80-100) fL MCH 27.1 (26-34) PG MCHC 32.6 (30-36) % RDW 23.9 H (11.6-14.8) % Plt Count 415 H (150-400) X10^3/uL Neut % (Auto) 85.5 H (50-75) % Lymph % (Auto) 7.7 L (25-40) % [place] % (Auto) 6.4 (3-14) % Eos % (Auto) 0.3 L (2-4) % Baso % (Auto) 0.1 (0-2) % Neut # (Auto) 74313 H (8258-7731) /uL RBC Morphology See below Poikilocytosis 1+ H Anisocytosis 2+ H Sodium 140 (137-145) mmol/L Potassium 5.4 H (3.4-5.1) mmol/L Chloride 101 (98-107) mmol/L Carbon Dioxide 23 (22-32) mmol/L BUN 77 H (7-17) mg/dL Creatinine 2.30 H (0.52-1.04) mg/dL Estimated GFR 21.8 L (>60) mL/min BUN/Creatinine Ratio 33.5 H (6-22) Glucose 180 H (70-100) mg/dL Calcium 8.6 (8.4-10.2) mg/dL Total Bilirubin 1.2 (0.2-1.3) mg/dL AST 133 H (14-36) IU/L ALT 42 (9-52) IU/L Alkaline Phosphatase 677 H (38-126) U/L Total Protein 6.7 (6.3-8.2) g/dL Albumin 3.1 L (3.5-5.0) g/dL Globulin 3.6 (1.7-4.1) g/dL Albumin/Globulin Ratio 0.9 L (1.0-2.8) Urine RBC 1-5/hpf (0-5/HPF) Urine WBC 10-30/hpf H (0-5/HPF) Ur Squamous Epith Cells 10-30 /hpf H Urine Bacteria Many (>30) H (None) Ur Culture Indicated? Specimen cultured Micro UA Comment Not Reportable Point of care testing: Urine Dip Bedside Urine Glucose Negative Bedside Urine Bilirubin - Negative Bedside Urine Ketone - Negative Urine Specific [place] 1.025 Bedside Urine Occult Blood - Negative Bedside Urine pH 5.5 Bedside Urine Protein +/- 15 Bedside Urine Urobilinogen - Negative Bedside Urine Nitrite - Negative Bedside Urine Leukocytes + 70 Esterase MDM Narrative Medical decision making narrative: CBC shows elevated white count of 15 K and elevated neutrophils. However this is consistent with her prior lab values. Chem panel shows elevated potassium of 5.4 creatinine of 2.[address] scan of the abdomen was obtained and was not able to visualize the kidneys well due to her ascites. Renal ultrasound was obtained was negative for any acute findings. Urinalysis indicates signs of urinary tract infection. Patient is not having any symptoms however due to decreasing renal function will go ahead and empirically treat for kidney in function was ciprofloxacin. Discussed case with her oncologist Dr. Rodriguez in [place] at the [facility] who recommends the patient follow up with Oncology locally in the next few days. Plenty of fluids. For any worsening symptoms return to the emergency room. <Rocco Deng, - Last Filed: 06/19/18 22:45> Lab Data Lab Results 06/19/18 06/19/18 06/19/18 Range/Units 15:10 15:10 19:30 WBC 15.1 H (4.5-11.0) X10^3/uL RBC 4.82 (4.0-5.2) X10^6/uL Hgb 13.1 (12.0-16.0) g/dL Hct 40.1 (36-46) % MCV 83.2 (80-100) fL MCH 27.1 (26-34) PG MCHC 32.6 (30-36) % RDW 23.9 H (11.6-14.8) % Plt Count 415 H (150-400) X10^3/uL Neut % (Auto) 85.5 H (50-75) % Lymph % (Auto) 7.7 L (25-40) % [place] % (Auto) 6.4 (3-14) % Eos % (Auto) 0.3 L (2-4) % Baso % (Auto) 0.1 (0-2) % Neut # (Auto) 67845 H (2601-2191) /uL RBC Morphology See below Poikilocytosis 1+ H Anisocytosis 2+ H Sodium 140 (137-145) mmol/L Potassium 5.4 H (3.4-5.1) mmol/L Chloride 101 (98-107) mmol/L Carbon Dioxide 23 (22-32) mmol/L BUN 77 H (7-17) mg/dL Creatinine 2.30 H (0.52-1.04) mg/dL Estimated GFR 21.8 L (>60) mL/min BUN/Creatinine Ratio 33.5 H (6-22) Glucose 180 H (70-100) mg/dL Calcium 8.6 (8.4-10.2) mg/dL Total Bilirubin 1.2 (0.2-1.3) mg/dL AST 133 H (14-36) IU/L ALT 42 (9-52) IU/L Alkaline Phosphatase 677 H (38-126) U/L Total Protein 6.7 (6.3-8.2) g/dL Albumin 3.1 L (3.5-5.0) g/dL Globulin 3.6 (1.7-4.1) g/dL Albumin/Globulin Ratio 0.9 L (1.0-2.8) Urine RBC 1-5/hpf (0-5/HPF) Urine WBC 10-30/hpf H (0-5/HPF) Ur Squamous Epith Cells 10-30 /hpf H Urine Bacteria Many (>30) H (None) Ur Culture Indicated? Specimen cultured Micro UA Comment Not Reportable Point of care testing: Urine Dip Bedside Urine Glucose Negative Bedside Urine Bilirubin - Negative Bedside Urine Ketone - Negative Urine Specific [place] 1.025 Bedside Urine Occult Blood - Negative Bedside Urine pH 5.5 Bedside Urine Protein +/- 15 Bedside Urine Urobilinogen - Negative Bedside Urine Nitrite - Negative Bedside Urine Leukocytes + 70 Esterase Discharge Plan Departure Patient Disposition: Home Clinical Impression: Acute renal insufficiency Discharge Date/Time: 06/19/18 21:04 Interventions: ED Discharge Assessment Last Done: 06/19/18 21:04 Instructions: Acute Renal Failure Activity Restrictions/Additional Instructions: Laboratory results indicates acute renal failure. Urinalysis presents as urinary tract infection will treat you for kidney infection with ciprofloxacin and antibiotic use as directed. Plenty of fluids. Currently prescribed medications as prescribed. Follow up with Oncology here in town locally in the next few days for re-evaluation. For any worsening symptoms return to the emergency room. Prescriptions: New ciprofloxacin HCl 500 mg tablet 500 mg PO BID Qty: 14 RF: 0 No Action atorvastatin [Lipitor] 20 MG tablet 20 mg PO QPM Qty: 0 RF: 0 hydrocodone-acetaminophen [Bradley] 10 MG/325 MG tablet 1 tab PO Q8HP PRN (Reason: Pain, Moderate) Qty: 0 RF: 0 pramipexole [Mirapex] 0.25 MG tablet 0.25 mg PO QPM Qty: 0 RF: 0 [CANNIBUS] 1 ea miscellaneous PRN PRN (Reason: misc) Qty: 0 RF: 0 levothyroxine 50 mcg tablet 50 mcg PO DAILY RF: 0 everolimus (antineoplastic) [Afinitor] 10 mg tablet 10 mg PO DAILY RF: 0 lisinopril 40 mg tablet 40 mg PO DAILY RF: 0 furosemide 40 mg tablet 40 mg PO DAILY RF: 0 spironolactone 25 mg tablet 1 tab PO DAILY RF: 0 oxycodone-acetaminophen 2.5-325 mg tablet 1 tab PO Q6H PRN (Reason: pain) Qty: 10 RF: 0 Referrals: [facility] [Provider Group] <Rocco Deng DO - Last Filed: 06/19/18 22:45> Cosign ED Attending Cosignature Attestation: I was available for consultation during this patient's emergency department encounter
--- NOTE | 2018-06-19 14:56 | DI.CT.S_ITS ---
PROCEDURE: CT ABDOMEN PELVIS WO CON INDICATIONS: Increased creatinine history of pancreatic cancer TECHNIQUE: After the administration of oral contrast, 5 mm thick sections acquired from the diaphragms to the symphysis. 5 mm coronal and sagittal reformats were performed. For radiation dose reduction, the following was used: automated exposure control, adjustment of mA and/or kV according to patient size. COMPARISON: None. FINDINGS: Image quality: Excellent. ABDOMEN: Lung bases: Lung bases are clear. Heart size is normal. Solid organs: Liver is nodular in contour. There are ill-defined areas of hypoattenuation throughout the liver including a calcified focus along the lateral left and posterior right lobes. Gallbladder demonstrates hyperdense material within the dependent portion likely sludge. No gross wall thickening. Pancreas, spleen, kidneys and stomach are poorly evaluated secondary to significant overlying fluid. Peritoneum and bowel: Bowel loops are poorly evaluated secondary to diffuse fluid throughout the abdomen and pelvis. There are likely colonic diverticula. Nodes and vessels: No retroperitoneal or mesenteric adenopathy by size criteria. Aorta and inferior vena cava are normal in size. Miscellaneous: No ventral hernias. PELVIS: Genitourinary: Bladder wall thickness is normal. Miscellaneous: No inguinal hernias or adenopathy. Bones: Multiple sclerotic foci are present within the axial and appendicular skeleton. No vertebral body compression fractures. IMPRESSION: 1. Significantly limited exam secondary to diffuse abdominal and pelvic fluid. Underlying areas of adenopathy, carcinomatosis, mass lesions or other findings obscured by fluid cannot be excluded. 2. Diffuse appearance of hepatic nodularity with ill-defined areas of low-attenuation as wells masslike calcifications as above. Overall appearance is poorly defined secondary to lack of contrast. The appearance coupled with ascites is suggestive of cirrhosis. However, presence of underlying masses secondary to neoplasm or potential hepatocellular disease cannot be excluded. 3. Multiple sclerotic foci within the osseous structures highly suggestive of metastatic disease. Dictated by: Nicole Amaya M.D. on 06/19/2018 at 16:27 Approved by: Nicole Amaya M.D. on 06/19/2018 at 16:31
[2018-06-19 15:21] LABS: Add Manual Diff / Slide Review NO; Basophils Percent Auto 0.1 % (0-2); Eosinophils Percent Auto 0.3 % (2-4); Hematocrit 40.1 % (36-46); Hemoglobin 13.1 g/dL (12.0-16.0); Lymphocytes Percent Auto 7.7 % (25-40); Mean Corpuscular HGB Conc 32.6 % (30-36); Mean Corpuscular Hemoglobin 27.1 PG (26-34); Mean Corpuscular Volume 83.2 fL (80-100); Monocytes Percent Auto 6.4 % (3-14); Neutrophils Absolute Auto 12900 /uL (3000-5900); Neutrophils Percent Auto 85.5 % (50-75); Platelet Count 415 X10^3/uL (150-400); Red Blood Cell Count 4.82 X10^6/uL (4.0-5.2); Red Cell Distribution Width 23.9 % (11.6-14.8); White Blood Cell Count 15.1 X10^3/uL (4.5-11.0)
[2018-06-19 15:33] LABS: Alanine Aminotransferase 42 IU/L (9-52); Albumin 3.1 g/dL (3.5-5.0); Albumin Globulin Ratio 0.9 (1.0-2.8); Alkaline Phosphatase 677 U/L (38-126); Aspartate Aminotransferase 133 IU/L (14-36); BUN Creatinine Ratio 33.5 (6-22); Bilirubin Total 1.2 mg/dL (0.2-1.3); Blood Urea Nitrogen 77 mg/dL (7-17); Calcium 8.6 mg/dL (8.4-10.2); Carbon Dioxide 23 mmol/L (22-32); Chloride 101 mmol/L (98-107); Estimated Glomerular Filt Rate 21.8 mL/min (>60); Globulin 3.6 g/dL (1.7-4.1); Glucose 180 mg/dL (70-100); HEMOLYSIS < 15 (0-50); Sodium 140 mmol/L (137-145); Total Protein 6.7 g/dL (6.3-8.2)
[2018-06-19 15:41] LABS: Anisocytosis 2+; Poikilocytosis 1+
[2018-06-19 15:42] LABS: Potassium 5.4 mmol/L (3.4-5.1)
[2018-06-19 16:40] VITALS: BP 84/47; PULSE 96; RESP 16; O2SAT 100
--- NOTE | 2018-06-19 17:46 | DI.US.S_ITS ---
PROCEDURE: US RENAL COMPLETE INDICATIONS: ELEVATED CREATININE; PANCREATIC CANCER TECHNIQUE: Real-time scanning was performed of the kidneys and bladder, with image documentation. COMPARISON: None. FINDINGS: Kidneys: Kidneys are normal in size. Right kidney measures 10.5 cm long; left kidney measures 10.0 cm long. Renal cortical echotexture is normal. No hydronephrosis or nephrolithiasis. No suspicious solid mass lesions. Bladder: Urinary bladder is decompressed. Miscellaneous: Small amount of ascites. IMPRESSION: 1. No hydronephrosis. 2. Small amount of ascites. Dictated by: Elisabet Steele M.D. on 06/19/2018 at 18:48 Approved by: Elisabet Steele M.D. on 06/19/2018 at 18:49
[2018-06-19 19:01] VITALS: BP 95/55; PULSE 93; RESP 17; O2SAT 98
[2018-06-19] MEDS: HYDROCODONE/ACET 5/325 TABLET 1 TAB PO (19:01)
[2018-06-19 20:33] LABS: Bacteria Urine Many (>30); Culture Indicated Urine Specimen Cultured; RBC Urine 1-5/HPF (0-5/HPF); Squamous Epithelial Cell Urine 10-30 /HPF; WBC Urine 10-30/HPF (0-5/HPF)
--- NOTE | 2018-06-19 20:44 | ED_ITS ---
HPI - Abdominal Pain <CAESAR Jones - Last Filed: 06/19/18 21:40> General Chief Complaint: Abdominal Pain Stated Complaint: SENT BY [facility], TO CHECK KIDNEY FUNCTION Time Seen by Provider: 06/19/18 14:28 Source: patient Mode of arrival: ambulatory Limitations: no limitations History of Present Illness HPI narrative: 58-year-old female with history of pancreatic cancer and liver metastasis that as an everyday smoker here due to being told to come in by Oncology down in [place] for further evaluation. She was being worked up for a new cancer treatment and was found that her creatinine was elevated along with her GFR being low. She was sent to the emergency room to look at her kidneys and repeat labs. She denies any urinary symptoms. No fevers or chills. No pain to the flank area. She denies any hematuria. She states she actually feels pretty good today. No other concerns or complaints. Related Data Home Medications Medication Instructions Recorded Confirmed [CANNIBUS] 1 ea MISCELLANEOUS PRN PRN #0 11/16/17 06/19/18 atorvastatin [Lipitor] 20 mg PO QPM #0 11/16/17 06/19/18 hydrocodone-acetaminophen [[place]] 1 tab PO Q8HP PRN #0 11/16/17 06/19/18 pramipexole [Mirapex] 0.25 mg PO QPM #0 11/16/17 06/19/18 everolimus (antineoplastic) 10 mg PO DAILY 05/06/18 06/19/18 [Afinitor] levothyroxine 50 mcg PO DAILY 05/06/18 06/19/18 lisinopril 40 mg PO DAILY 05/19/18 06/19/18 furosemide 40 mg PO DAILY 06/02/18 06/19/18 spironolactone 1 tab PO DAILY 06/02/18 06/19/18 Previous Rx's Medication Instructions Recorded oxycodone-acetaminophen 1 tab PO Q6H PRN #10 tab 06/02/18 ciprofloxacin HCl 500 mg PO BID #14 tab 06/19/18 Allergies Allergy/AdvReac Type Severity Reaction Status Date / Time No Known Drug Allergies Allergy Verified 06/02/18 16:18 Review of Systems <CAESAR Jones - Last Filed: 06/19/18 21:40> Review of Systems Here for further evaluation of kidney function Constitutional Denies chills, Denies fever(s), Denies lethargy and Denies weakness Eyes Denies change in vision, Denies eye discharge, Denies irritation and Denies loss of vision ENT Ears, Nose, Mouth, and Throat: Denies change in voice, Denies neck pain, Denies sore throat and Denies throat swelling Cardiovascular Denies chest pain, Denies irregular heart rhythm, Denies lightheadedness, Denies palpitations and Denies orthopnea Respiratory Denies wheezing Gastrointestinal Gastrointestinal: Denies abdominal pain, Denies change in bowel habits, Denies diarrhea, Denies nausea and Denies vomiting Genitourinary Denies hematuria, Denies flank pain, Denies urinary incontinence and Denies urinary urgency Musculoskeletal Denies neck pain Integumentary/Breasts Denies pruritus, Denies erythema, Denies rash and Denies wounds Neurologic Denies loss of vision and Denies weakness Endocrine Denies palpitations Allergic/Immunologic Denies urticaria, Denies throat swelling and Denies wheezing Exam <CAESAR Jones - Last Filed: 06/19/18 21:40> Initial Vital Signs Initial Vital Signs: Vital Signs Temperature 97.7 F 06/19/18 11:35 Pulse Rate 97 H 06/19/18 11:35 Respiratory Rate 17 06/19/18 11:35 Blood Pressure 100/63 06/19/18 11:35 Pulse Oximetry 97 06/19/18 11:35 Const General: cooperative and well developed Nutritional Appearance: well nourished Orientation: alert, awake, oriented x3 and not confused [facility] Mouth: oral mucosae normal and moist mucous membranes Eyes Conjunctivae: conjunctivae normal Sclera: sclerae normal Pupils: PERRL EOM: EOM intact bilaterally Resp Effort & Inspection: normal respiratory effort, able to speak in complete sentences, no respiratory distress and no use of accessory muscles Auscultation: clear to auscultation bilaterally, no rales, no rhonchi and no wheezes Cardio Rate: regular rate Rhythm: regular rhythm Heart Sounds: no click, no gallops, no murmurs and no rubs Pulses: normal peripheral pulses GI Inspection: non-distended Palpation: soft, no hepatosplenomegaly, No guarding, No pulsatile mass, No tender and ascites Auscultation: normal bowel sounds General: No CVA tenderness Skin General: no rashes or lesions noted, No jaundice and No petechiae Neuro General: alert, oriented x3, gait normal and no focal motor deficits Speech: speech normal <Rocco Deng DO - Last Filed: 06/19/18 22:45> Initial Vital Signs Initial Vital Signs: Vital Signs Temperature 97.7 F 06/19/18 11:35 Pulse Rate 97 H 06/19/18 11:35 Respiratory Rate 17 06/19/18 11:35 Blood Pressure 100/63 06/19/18 11:35 Pulse Oximetry 97 06/19/18 11:35 Course <CAESAR Jones - Last Filed: 06/19/18 21:40> Orders Ordered: ED Orders 06/19/18 14:56 CT abdomen pelvis wo con Stat 06/19/18 15:10 Complete Blood Count AUTO DIFF Stat Comprehensive Metabolic Panel Stat 06/19/18 17:46 US renal complete Stat 06/19/18 19:30 Urine Culture Stat Urine Microscopic Stat Discontinued Medications Hydrocodone Bitart/Acetaminophen ([place] 5/325) 1 tab PO NOW ONE Stop: 06/19/18 18:58 Last Admin: 06/19/18 19:01 Dose: 1 tab Ciprofloxacin (Cipro) 500 mg PO NOW ONE Stop: 06/19/18 20:48 Last Admin: 06/19/18 20:55 Dose: 500 mg Vital Signs - 8 hr 06/19/18 16:40 06/19/18 19:01 06/19/18 21:04 Pulse Rate 96 H 93 H 85 Respiratory Rate 16 17 15 Blood Pressure 87/51 L Blood Pressure [Right Arm] 84/47 L 95/55 L Pulse Oximetry 100 98 99 <Rocco Deng DO - Last Filed: 06/19/18 22:45> Orders Ordered: ED Orders 06/19/18 14:56 CT abdomen pelvis wo con Stat 06/19/18 15:10 Complete Blood Count AUTO DIFF Stat Comprehensive Metabolic Panel Stat 06/19/18 17:46 US renal complete Stat 06/19/18 19:30 Urine Culture Stat Urine Microscopic Stat Discontinued Medications Hydrocodone Bitart/Acetaminophen ([place] 5/325) 1 tab PO NOW ONE Stop: 06/19/18 18:58 Last Admin: 06/19/18 19:01 Dose: 1 tab Ciprofloxacin (Cipro) 500 mg PO NOW ONE Stop: 06/19/18 20:48 Last Admin: 06/19/18 20:55 Dose: 500 mg Vital Signs - 8 hr 06/19/18 16:40 06/19/18 19:01 06/19/18 21:04 Pulse Rate 96 H 93 H 85 Respiratory Rate 16 17 15 Blood Pressure 87/51 L Blood Pressure [Right Arm] 84/47 L 95/55 L Pulse Oximetry 100 98 99 MDM - Abdominal Pain <CAESAR Jones - Last Filed: 06/19/18 21:40> Lab Data Result diagrams: 06/19/18 15:10 06/19/18 15:10 Lab Results 06/19/18 06/19/18 06/19/18 Range/Units 15:10 15:10 19:30 WBC 15.1 H (4.5-11.0) X10^3/uL RBC 4.82 (4.0-5.2) X10^6/uL Hgb 13.1 (12.0-16.0) g/dL Hct 40.1 (36-46) % MCV 83.2 (80-100) fL MCH 27.1 (26-34) PG MCHC 32.6 (30-36) % RDW 23.9 H (11.6-14.8) % Plt Count 415 H (150-400) X10^3/uL Neut % (Auto) 85.5 H (50-75) % Lymph % (Auto) 7.7 L (25-40) % Lyman % (Auto) 6.4 (3-14) % Eos % (Auto) 0.3 L (2-4) % Baso % (Auto) 0.1 (0-2) % Neut # (Auto) 89208 H (5917-7895) /uL RBC Morphology See below Poikilocytosis 1+ H Anisocytosis 2+ H Sodium 140 (137-145) mmol/L Potassium 5.4 H (3.4-5.1) mmol/L Chloride 101 (98-107) mmol/L Carbon Dioxide 23 (22-32) mmol/L BUN 77 H (7-17) mg/dL Creatinine 2.30 H (0.52-1.04) mg/dL Estimated GFR 21.8 L (>60) mL/min BUN/Creatinine Ratio 33.5 H (6-22) Glucose 180 H (70-100) mg/dL Calcium 8.6 (8.4-10.2) mg/dL Total Bilirubin 1.2 (0.2-1.3) mg/dL AST 133 H (14-36) IU/L ALT 42 (9-52) IU/L Alkaline Phosphatase 677 H (38-126) U/L Total Protein 6.7 (6.3-8.2) g/dL Albumin 3.1 L (3.5-5.0) g/dL Globulin 3.6 (1.7-4.1) g/dL Albumin/Globulin Ratio 0.9 L (1.0-2.8) Urine RBC 1-5/hpf (0-5/HPF) Urine WBC 10-30/hpf H (0-5/HPF) Ur Squamous Epith Cells 10-30 /hpf H Urine Bacteria Many (>30) H (None) Ur Culture Indicated? Specimen cultured Micro UA Comment Not Reportable Point of care testing: Urine Dip Bedside Urine Glucose Negative Bedside Urine Bilirubin - Negative Bedside Urine Ketone - Negative Urine Specific [place] 1.025 Bedside Urine Occult Blood - Negative Bedside Urine pH 5.5 Bedside Urine Protein +/- 15 Bedside Urine Urobilinogen - Negative Bedside Urine Nitrite - Negative Bedside Urine Leukocytes + 70 Esterase MDM Narrative Medical decision making narrative: CBC shows elevated white count of 15 K and elevated neutrophils. However this is consistent with her prior lab values. Chem panel shows elevated potassium of 5.4 creatinine of 2.[address] scan of the abdomen was obtained and was not able to visualize the kidneys well due to her ascites. Renal ultrasound was obtained was negative for any acute findings. Urinalysis indicates signs of urinary tract infection. Patient is not having any symptoms however due to decreasing renal function will go ahead and empirically treat for kidney in function was ciprofloxacin. Discussed case with her oncologist Dr. Rodriguez in [place] at the [facility] who recommends the patient follow up with Oncology locally in the next few days. Plenty of fluids. For any worsening symptoms return to the emergency room. <Rocco Deng, - Last Filed: 06/19/18 22:45> Lab Data Lab Results 06/19/18 06/19/18 06/19/18 Range/Units 15:10 15:10 19:30 WBC 15.1 H (4.5-11.0) X10^3/uL RBC 4.82 (4.0-5.2) X10^6/uL Hgb 13.1 (12.0-16.0) g/dL Hct 40.1 (36-46) % MCV 83.2 (80-100) fL MCH 27.1 (26-34) PG MCHC 32.6 (30-36) % RDW 23.9 H (11.6-14.8) % Plt Count 415 H (150-400) X10^3/uL Neut % (Auto) 85.5 H (50-75) % Lymph % (Auto) 7.7 L (25-40) % Lyman % (Auto) 6.4 (3-14) % Eos % (Auto) 0.3 L (2-4) % Baso % (Auto) 0.1 (0-2) % Neut # (Auto) 21563 H (5042-1600) /uL RBC Morphology See below Poikilocytosis 1+ H Anisocytosis 2+ H Sodium 140 (137-145) mmol/L Potassium 5.4 H (3.4-5.1) mmol/L Chloride 101 (98-107) mmol/L Carbon Dioxide 23 (22-32) mmol/L BUN 77 H (7-17) mg/dL Creatinine 2.30 H (0.52-1.04) mg/dL Estimated GFR 21.8 L (>60) mL/min BUN/Creatinine Ratio 33.5 H (6-22) Glucose 180 H (70-100) mg/dL Calcium 8.6 (8.4-10.2) mg/dL Total Bilirubin 1.2 (0.2-1.3) mg/dL AST 133 H (14-36) IU/L ALT 42 (9-52) IU/L Alkaline Phosphatase 677 H (38-126) U/L Total Protein 6.7 (6.3-8.2) g/dL Albumin 3.1 L (3.5-5.0) g/dL Globulin 3.6 (1.7-4.1) g/dL Albumin/Globulin Ratio 0.9 L (1.0-2.8) Urine RBC 1-5/hpf (0-5/HPF) Urine WBC 10-30/hpf H (0-5/HPF) Ur Squamous Epith Cells 10-30 /hpf H Urine Bacteria Many (>30) H (None) Ur Culture Indicated? Specimen cultured Micro UA Comment Not Reportable Point of care testing: Urine Dip Bedside Urine Glucose Negative Bedside Urine Bilirubin - Negative Bedside Urine Ketone - Negative Urine Specific [place] 1.025 Bedside Urine Occult Blood - Negative Bedside Urine pH 5.5 Bedside Urine Protein +/- 15 Bedside Urine Urobilinogen - Negative Bedside Urine Nitrite - Negative Bedside Urine Leukocytes + 70 Esterase Discharge Plan Departure Patient Disposition: Home Clinical Impression: Acute renal insufficiency Discharge Date/Time: 06/19/18 21:04 Interventions: ED Discharge Assessment Last Done: 06/19/18 21:04 Instructions: Acute Renal Failure Activity Restrictions/Additional Instructions: Laboratory results indicates acute renal failure. Urinalysis presents as urinary tract infection will treat you for kidney infection with ciprofloxacin and antibiotic use as directed. Plenty of fluids. Currently prescribed medications as prescribed. Follow up with Oncology here in town locally in the next few days for re-evaluation. For any worsening symptoms return to the emergency room. Prescriptions: New ciprofloxacin HCl 500 mg tablet 500 mg PO BID Qty: 14 RF: 0 No Action atorvastatin [Lipitor] 20 MG tablet 20 mg PO QPM Qty: 0 RF: 0 hydrocodone-acetaminophen [[place]] 10 MG/325 MG tablet 1 tab PO Q8HP PRN (Reason: Pain, Moderate) Qty: 0 RF: 0 pramipexole [Mirapex] 0.25 MG tablet 0.25 mg PO QPM Qty: 0 RF: 0 [CANNIBUS] 1 ea miscellaneous PRN PRN (Reason: misc) Qty: 0 RF: 0 levothyroxine 50 mcg tablet 50 mcg PO DAILY RF: 0 everolimus (antineoplastic) [Afinitor] 10 mg tablet 10 mg PO DAILY RF: 0 lisinopril 40 mg tablet 40 mg PO DAILY RF: 0 furosemide 40 mg tablet 40 mg PO DAILY RF: 0 spironolactone 25 mg tablet 1 tab PO DAILY RF: 0 oxycodone-acetaminophen 2.5-325 mg tablet 1 tab PO Q6H PRN (Reason: pain) Qty: 10 RF: 0 Referrals: [facility] [Provider Group] <Rocco Deng DO - Last Filed: 06/19/18 22:45> Cosign ED Attending Cosignature Attestation: I was available for consultation during this patient's emergency department encounter
[2018-06-19] MEDS: CIPROFLOXACIN 500 MG TABLET PO (20:55)
[2018-06-19 21:04] VITALS: BP 87/51; PULSE 85; RESP 15; O2SAT 99
--- NOTE | 2018-06-21 16:36 | PC.NURSE ---
f/u call, no answer.
== END 2018-06-19 21:04 | disposition home or self-care (01) ==
PROVIDERS: Emergency Provider Nurse Practitioner Family
DX: N28.9 Disorder of kidney and ureter, unspecified (principal)
CPT/HCPCS: 36591; 74176; 76770; 80053; 81003; 81015; 85025; 87086; 99283; 99284

== ENCOUNTER → 2018-07-04 13:00 | Oncology outpatient (ONC) | payer MEDICARE, SELFPAY ==
[2018-07-03 15:53] VITALS: BP 89/55; PULSE 91; RESP 19; TEMP 36.9
--- NOTE | 2018-07-03 15:55 | ONC.CONS ---
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 Patient presented with 25 lb weight loss in 2014 associated with abdominal pain and vomiting. CT scan on 07/12/2015 showed 2 x 3.5 cm mass in pancreatic body with multiple liver lesions including segment 82.5 x 2 cm, segment 72.8 x 2.8 cm. On 07/20/2015 patient underwent ultrasound-guided core liver biopsy which confirmed the diagnosis of neuroendocrine carcinoma. CA 19-9 was 27. From 07/2015 to 07/2017, patient received capecitabine and temozolomide for about 2 years which had to be stopped because of disease progression. Initially patient was on temozolomide alone until September 2015 due to insurance issues. From 11/21/2016 to 04/17/2018, patient was on octreotide 20 mg once daily. From 07/2017 to 01/2018, patient was on sunitinib which was stopped due to disease progression. From 02/2018 to 05/2018, she was treated with everolimus again it was stopped due to disease progression. Patient recently has been evaluated at [facility] for treatment with PRRT. On 06/13/2018, patient underwent mid body gallium -68 DOTATATE PET/CT. The result showed intense calcium-68 DOTATATE uptake in the pancreatic body tumor consistent with known neuroendocrine tumor, PET avid metastatic disease involving the russel hepatic lymph nodes, mediastinal lymph nodes, liver and osseous structures, and large volume ascites and anasarca. Patient also underwent paracentesis on 06/02/2018, and 06/11/2018 for symptomatic relief. On 06/11/[address]-guided liver biopsy and she tolerated well. The pathology showed neuroendocrine carcinoma with proliferation Ki-67 index 40%. On 06/19/2018, patient was scheduled for PRRT treatment. However she was found to have acute kidney failure with sCr 2.53. She was deemed not a good candidate, and patient was referred to ED at [place] for hydration. Hospice care was recommended. There after patient was referred to our Medical Oncology for continued evaluation. Patient clinically reports no fever and no chills. Patient does report uncomfortable sensation in the abdomen. Patient said that she is able to make urine. Patient is complaining abdominal pain. The pain is affecting the whole abdomen 6/10 in severity. It is a constant pain patient is taking Percocet 5 mg pill once every 4-6 hours on as needed basis. Patient said that the pain is not under excellent control. In addition patient is also complaining constipation. Patient is using MiraLax for symptomatic relief. Patient complains of daily nausea and vomiting. Is using Zofran once in the morning. He said that her appetite is very low and non-existent. She said she tries to eat but that makes her feel sick. Patient reports pain?: Yes - Pain Details Pain location: abdomen, no specific location Pain Intensity: 6 Pain Scale Used: Numeric (1 - 10) Pain Frequency: Constant Pain Description: Aching Home Medications and Allergies Home Medications Medication Instructions Recorded Confirmed Type [CANNIBUS] 1 ea MISCELLANEOUS PRN PRN #0 11/16/17 07/03/18 History atorvastatin [Lipitor] 20 mg PO QPM #0 11/16/17 07/03/18 History pramipexole [Mirapex] 0.25 mg PO QPM #0 11/16/17 07/03/18 History levothyroxine 50 mcg PO DAILY 05/06/18 07/03/18 History furosemide 40 mg PO DAILY 06/02/18 07/03/18 History spironolactone 1 tab PO DAILY 06/02/18 07/03/18 History oxycodone 5 mg PO Q4-6H PRN #72 tab 07/03/18 Rx Allergies Allergy/AdvReac Type Severity Reaction Status Date / Time No Known Drug Allergies Allergy Verified 06/02/18 16:18 Medical History - Medical, Surgical, Family History Medical History: Medical History (Last Updated 07/03/18 @ 16:16 by Francisco Martínez MD) Pancreatic cancer metastasized to liver (Acute) Hypertension Hypothyroidism Surgical History: Surgical History (Last Reviewed 06/19/18 @ 20:39 by CAESAR Jones) No pertinent past surgical history (Acute) Family History: Family History (Last Updated 07/03/18 @ 16:18 by Francisco Martínez MD) Mother Cancer Sister Cancer - Social History Smoking Status: Current every day smoker Time spent discussing smoking cessation with patient: 3 to 10 minutes (did not comit to stop smoking.) Substance Use Type: does not use Alcohol Intake Frequency: 0-2 drinks per day (non-drinker) Review of Systems All systems PM: reviewed and no additional remarkable complaints except as stated Exam Vital signs: Last Vital Signs Temp 98.4 F 07/03/18 15:53 Pulse 91 H 07/03/18 15:53 Resp 19 07/03/18 15:53 BP 89/55 L 07/03/18 15:53 ECOG 1 - Constitutional positive no acute distress, positive cachectic, positive chronically ill appearing, positive cooperative - Routine HEENT Exam Head: Present: normocephalic, atraumatic Eye: Present: EOMI, PERRL, normal accommodation. Absent: conjunctival icterus ENT: Present: mucous membranes moist - Routine Neck Exam Present: supple. Absent: lymphadenopathy, thyromegaly - Routine Respiratory Exam Present: Clear to auscultation bilaterally. Absent: wheezes - Routine Cardiovascular Exam Present: RRR, S1, S2. Absent: murmur, gallop, rubs, S3 - Routine Abdominal Exam Present: tenderness, distended, firm. Absent: rebound, guarding, rigid, hernia Palpation/Percussion: Present: hepatomegaly (hard, at least 10 cm below xyphoid, and mildly tender. ) - Routine Extremities Exam Present: edema (2+ bilateral lower extremities, symmetrical.) - Routine Neurological Exam Present: alert, oriented X3, CN II-XII intact, normal reflexes. Absent: sensory deficit, motor deficit - Routine Psychiatric Exam Present: normal affect, normal thought process, cooperative, good insight, good judgment Results - Labs Reviewed. Assessment and Plan (1) Primary pancreatic neuroendocrine tumor Mrs. 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 Patient has been through multiple lines of treatment and recently was evaluated at [facility] for PRRT. Unfortunately on the day of the treatment, she was found to have acute kidney failure and the treatment has to be aborted. There after patient was referred to here for continued evaluation. Clinically patient has severe ascites, abdominal pain, nausea vomiting, poor performance status ECOG 2, however she is in good spirit. She came in here today accompanied by her son, [id number], and her . At [facility], hospice care has already been discussed with the patient. Patient and patient's family are aware that the goal of the treatment is supportive and palliative. Plan: 1. Referral nephrology reji for evaluation of ANGELINA 2. CBC, CMP,LDH today 3. Therapeutic paracentesis x1 4. Oxycodone 5 mg x 72#, 1# q4-6h, prn pain 5. RTC in one week for follow up visit, repeat CBC, CMP, and LDH
--- NOTE | 2018-07-03 16:00 | P.CONONC_ITS ---
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 Patient presented with 25 lb weight loss in 2014 associated with abdominal pain and vomiting. CT scan on 07/12/2015 showed 2 x 3.5 cm mass in pancreatic body with multiple liver lesions including segment 82.5 x 2 cm, segment 72.8 x 2.8 cm. On 07/20/2015 patient underwent ultrasound-guided core liver biopsy which confirmed the diagnosis of neuroendocrine carcinoma. CA 19-9 was 27. From 07/2015 to 07/2017, patient received capecitabine and temozolomide for about 2 years which had to be stopped because of disease progression. Initially patient was on temozolomide alone until September 2015 due to insurance issues. From 11/21/2016 to 04/17/2018, patient was on octreotide 20 mg once daily. From 07/2017 to 01/2018, patient was on sunitinib which was stopped due to disease progression. From 02/2018 to 05/2018, she was treated with everolimus again it was stopped due to disease progression. Patient recently has been evaluated at [facility] for treatment with PRRT. On 2017, patient underwent mid body gallium -68 DOTATATE PET/CT. The result showed intense calcium-68 DOTATATE uptake in the pancreatic body tumor consistent with known neuroendocrine tumor, PET avid metastatic disease involving the russel hepatic lymph nodes, mediastinal lymph nodes, liver and osseous structures, and large volume ascites and anasarca. Patient also underwent paracentesis on 06/02/2018, and 06/11/2018 for symptomatic relief. On 06/11/[address]-guided liver biopsy and she tolerated well. The pathology showed neuroendocrine carcinoma with proliferation Ki-67 index 40%. On 06/19/2018, patient was scheduled for PRRT treatment. However she was found to have acute kidney failure with sCr 2.53. She was deemed not a good candidate , and patient was referred to ED at [place] for hydration. Hospice care was recommended. There after patient was referred to our Medical Oncology for continued evaluation. Patient clinically reports no fever and no chills. Patient does report uncomfortable sensation in the abdomen. Patient said that she is able to make urine. Patient is complaining abdominal pain. The pain is affecting the whole abdomen 6/10 in severity. It is a constant pain patient is taking Percocet 5 mg pill once every 4-6 hours on as needed basis. Patient said that the pain is not under excellent control. In addition patient is also complaining constipation. Patient is using MiraLax for symptomatic relief. Patient complains of daily nausea and vomiting. Is using Zofran once in the morning. He said that her appetite is very low and non -existent. She said she tries to eat but that makes her feel sick. Patient reports pain?: Yes - Pain Details Pain location: abdomen, no specific location Pain Intensity: 6 Pain Scale Used: Numeric (1 - 10) Pain Frequency: Constant Pain Description: Aching Home Medications and Allergies Home Medications Medication Instructions Recorded Confirmed Type [CANNIBUS] 1 ea MISCELLANEOUS PRN PRN #0 11/16/17 07/03/18 History atorvastatin [Lipitor] 20 mg PO QPM #0 11/16/17 07/03/18 History pramipexole [Mirapex] 0.25 mg PO QPM #0 11/16/17 07/03/18 History levothyroxine 50 mcg PO DAILY 05/06/18 07/03/18 History furosemide 40 mg PO DAILY 06/02/18 07/03/18 History spironolactone 1 tab PO DAILY 06/02/18 07/03/18 History oxycodone 5 mg PO Q4-6H PRN #72 tab 07/03/18 Rx Allergies Allergy/AdvReac Type Severity Reaction Status Date / Time No Known Drug Allergies Allergy Verified 06/02/18 16:18 Medical History - Medical, Surgical, Family History Medical History: Medical History (Last Updated 07/03/18 @ 16:16 by Francisco Martínez MD) Pancreatic cancer metastasized to liver (Acute) Hypertension Hypothyroidism Surgical History: Surgical History (Last Reviewed 06/19/18 @ 20:39 by CAESAR Jones) No pertinent past surgical history (Acute) Family History: Family History (Last Updated 07/03/18 @ 16:18 by Francisco Martínez MD) Mother Cancer Sister Cancer - Social History Smoking Status: Current every day smoker Time spent discussing smoking cessation with patient: 3 to 10 minutes (did not comit to stop smoking.) Substance Use Type: does not use Alcohol Intake Frequency: 0-2 drinks per day (non-drinker) Review of Systems All systems PM: reviewed and no additional remarkable complaints except as stated Exam Vital signs: Last Vital Signs Temp 98.4 F 07/03/18 15:53 Pulse 91 H 07/03/18 15:53 Resp 19 07/03/18 15:53 BP 89/55 L 07/03/18 15:53 ECOG 1 - Constitutional positive no acute distress, positive cachectic, positive chronically ill appearing, positive cooperative - Routine HEENT Exam Head: Present: normocephalic, atraumatic Eye: Present: EOMI, PERRL, normal accommodation. Absent: conjunctival icterus ENT: Present: mucous membranes moist - Routine Neck Exam Present: supple. Absent: lymphadenopathy, thyromegaly - Routine Respiratory Exam Present: Clear to auscultation bilaterally. Absent: wheezes - Routine Cardiovascular Exam Present: RRR, S1, S2. Absent: murmur, gallop, rubs, S3 - Routine Abdominal Exam Present: tenderness, distended, firm. Absent: rebound, guarding, rigid, hernia Palpation/Percussion: Present: hepatomegaly (hard, at least 10 cm below xyphoid , and mildly tender. ) - Routine Extremities Exam Present: edema (2+ bilateral lower extremities, symmetrical.) - Routine Neurological Exam Present: alert, oriented X3, CN II-XII intact, normal reflexes. Absent: sensory deficit, motor deficit - Routine Psychiatric Exam Present: normal affect, normal thought process, cooperative, good insight, good judgment Results - Labs Reviewed. Assessment and Plan (1) Primary pancreatic neuroendocrine tumor Mrs. 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 Patient has been through multiple lines of treatment and recently was evaluated at [facility] for PRRT. Unfortunately on the day of the treatment, she was found to have acute kidney failure and the treatment has to be aborted. There after patient was referred to here for continued evaluation. Clinically patient has severe ascites, abdominal pain, nausea vomiting, poor performance status ECOG 2, however she is in good spirit. She came in here today accompanied by her son, [id number], and her . At [facility], hospice care has already been discussed with the patient. Patient and patient's family are aware that the goal of the treatment is supportive and palliative. Plan: 1. Referral nephrology reji for evaluation of ANGELINA 2. CBC, CMP,LDH today 3. Therapeutic paracentesis x1 4. Oxycodone 5 mg x 72#, 1# q4-6h, prn pain 5. RTC in one week for follow up visit, repeat CBC, CMP, and LDH
[2018-07-04 13:53] LABS: INR 1.1 (0.9-1.3); Prothrombin Time 11.8 SECONDS (10.1-12.7)
[2018-07-04 14:05] LABS: Alanine Aminotransferase 50 IU/L (9-52); Albumin 3.3 g/dL (3.5-5.0); Albumin Globulin Ratio 0.9 (1.0-2.8); Alkaline Phosphatase 591 U/L (38-126); Aspartate Aminotransferase 152 IU/L (14-36); Bilirubin Total 2.3 mg/dL (0.2-1.3); Calcium 7.7 mg/dL (8.4-10.2); Carbon Dioxide 20 mmol/L (22-32); Chloride 91 mmol/L (98-107); Globulin 3.6 g/dL (1.7-4.1); Glucose 93 mg/dL (70-100); HEMOLYSIS < 15 (0-50); Lactate Dehydrogenase 1536 U/L (313-618); Sodium 133 mmol/L (137-145); Total Protein 6.9 g/dL (6.3-8.2)
[2018-07-04 14:07] LABS: Add Manual Diff / Slide Review NO; Basophils Percent Auto 1.7 % (0-2); Hematocrit 41.2 % (36-46); Hemoglobin 13.7 g/dL (12.0-16.0); Lymphocytes Percent Auto 11.7 % (25-40); Mean Corpuscular HGB Conc 33.2 % (30-36); Mean Corpuscular Hemoglobin 27.6 PG (26-34); Mean Corpuscular Volume 83.2 fL (80-100); Monocytes Percent Auto 4.6 % (3-14); Neutrophils Absolute Auto 6700 /uL (3000-5900); Red Blood Cell Count 4.95 X10^6/uL (4.0-5.2); Red Cell Distribution Width 23.3 % (11.6-14.8); White Blood Cell Count 8.2 X10^3/uL (4.5-11.0)
[2018-07-04 14:11] LABS: Estimated Glomerular Filt Rate 5.3 mL/min (>60)
[2018-07-04 14:34] LABS: BUN Creatinine Ratio 17.9 (6-22)
[2018-07-04 14:37] LABS: Blood Urea Nitrogen 140 mg/dL (7-17); Potassium 6.3 mmol/L (3.4-5.1)
--- NOTE | 2018-07-04 14:45 | PC.NURSE ---
Received critical lab values from lab; potassium 6.3, BUN 140, creatinine 7.8. Triage aware.
[2018-07-04 14:55] LABS: Platelet Count 355 X10^3/uL (150-400)
[2018-07-04 14:57] LABS: Anisocytosis 3+; Macrocytosis 1+; Microcytosis 1+; Spherocytes 1+
--- NOTE | 2018-07-04 15:38 | PC.NURSE ---
Received multiple critical values on labs draw today. K+ 6.3 BUN 140 Creatinine 7.8 AST 152. Results shown to Dr. Martínez who asked for pt to be sent to ED for further evaluation. Pt was called and she agreed to this. Spoke with ROEL Eden in ED and advised her of the pts arrival and also her critical lab values
--- NOTE | 2018-07-10 10:01 | ONC.NAV ---
*Sent bereavement card.
== END ==
PROVIDERS: Family Provider Internal Medicine Hematology & Oncology; PCP Internal Medicine Hematology & Oncology; Visit Provider Internal Medicine Hematology & Oncology
DX: C7A.8 Other malignant neuroendocrine tumors (principal); C78.7 Secondary malignant neoplasm of liver and intrahepatic bile duct; C77.1 Secondary and unspecified malignant neoplasm of intrathoracic lymph nodes
CPT/HCPCS: 36415; 80053; 83615; 85025; 85610; 99204; 99214

== ENCOUNTER 2018-07-04 16:10 | Emergency (ER) | payer MEDICARE, SELFPAY ==
[2018-07-04] VITALS (12 sets, daily range): BP systolic 81–98; BP diastolic 52–75; PULSE 66–100; RESP 10–20; O2SAT 81–100; BMI 20.5
--- NOTE | 2018-07-04 16:34 | ED.RECABL ---
HPI - Recheck/Abnormal Lab/Rx <CAEASR Jones - Last Filed: 07/04/18 21:51> General Chief Complaint: Recheck/Abnormal Lab/Rx Stated Complaint: SENT BY ONCOLOGY Time Seen by Provider: 07/04/18 16:34 Source: patient Mode of arrival: ambulatory Limitations: no limitations History of Present Illness HPI narrative: 58-year-old female with history of pancreatic cancer with mets to her liver is an everyday smoker sent over to emergency room from oncology due to having abnormal labs today. CMP shows an elevated potassium of 6.3 and BUN of 140 and creatinine of 7.8 which is sharp increased from her prior lab values. patient denies any increase abdominal pain over her baseline. She denies any flank pain. She states that she is tolerating p.o. intake she does states she has had a decreased appetite over the past several weeks. Although she states she is tolerating fluids well. she states that she is making urine. She denies any chest pain. she denies any other concerns or complaints at this time. Related Data Home Medications Medication Instructions Recorded Confirmed [CANNIBUS] 1 ea MISCELLANEOUS PRN PRN #0 11/16/17 07/03/18 atorvastatin [Lipitor] 20 mg PO QPM #0 11/16/17 07/03/18 pramipexole [Mirapex] 0.25 mg PO QPM #0 11/16/17 07/04/18 levothyroxine 50 mcg PO DAILY 05/06/18 07/03/18 furosemide 40 mg PO DAILY 06/02/18 07/04/18 spironolactone 1 tab PO DAILY 06/02/18 07/04/18 lisinopril 40 mg PO DAILY 07/04/18 07/04/18 lorazepam 0.5 mg PO Q6H PRN 07/04/18 07/04/18 oxycodone 07/04/18 prochlorperazine maleate 10 mg PO QID PRN 07/04/18 07/04/18 Previous Rx's Medication Instructions Recorded oxycodone 5 mg PO Q4-6H PRN #72 tab 07/03/18 Allergies Allergy/AdvReac Type Severity Reaction Status Date / Time No Known Drug Allergies Allergy Verified 07/04/18 16:15 Review of Systems <CAESAR Jones - Last Filed: 07/04/18 21:51> Constitutional Denies chills, Denies fever(s), Denies lethargy and Denies weakness Eyes Denies change in vision, Denies eye discharge, Denies irritation and Denies loss of vision ENT Ears, Nose, Mouth, and Throat: Denies change in voice, Denies neck pain and Denies sore throat Cardiovascular Denies chest pain, Denies irregular heart rhythm, Denies lightheadedness, Denies palpitations, Denies dyspnea, Denies dyspnea on exertion and Denies orthopnea Respiratory Denies cough, Denies dyspnea, Denies dyspnea on exertion and Denies wheezing Gastrointestinal Gastrointestinal: Reports abdominal pain, Denies change in bowel habits, Denies diarrhea, Denies nausea and Denies vomiting Genitourinary Denies hematuria, Denies flank pain, Denies urinary incontinence and Denies urinary urgency Musculoskeletal Denies neck pain Neurologic Denies confusion, Denies loss of vision and Denies weakness Psychiatric Denies anxiety, Denies confusion, Denies depression, Denies homicidal ideation and Denies suicidal ideation Endocrine Denies palpitations Hematologic/Lymphatic Denies easy bruising Allergic/Immunologic Denies wheezing Exam <Long Walker [facility] - Last Filed: 07/04/18 21:51> Initial Vital Signs Initial Vital Signs: Vital Signs Pulse Rate 81 07/04/18 16:15 Blood Pressure 81/54 L 07/04/18 16:15 Const General: cooperative and well developed Nutritional Appearance: well nourished Orientation: alert, awake, oriented x3 and not confused [facility] Mouth: oral mucosae normal, oropharynx normal and moist mucous membranes Eyes Conjunctivae: conjunctivae normal Sclera: sclerae normal Pupils: PERRL EOM: EOM intact bilaterally Resp Effort & Inspection: normal respiratory effort, able to speak in complete sentences, no respiratory distress and no use of accessory muscles Auscultation: clear to auscultation bilaterally, no rales, no rhonchi and no wheezes Cardio Rate: regular rate Rhythm: regular rhythm Heart Sounds: no click, no gallops, no murmurs and no rubs Pulses: normal peripheral pulses GI Inspection: non-distended and other ( Ascites) Palpation: soft, no hepatosplenomegaly, No guarding, No pulsatile mass and No tender Auscultation: normal bowel sounds General: No CVA tenderness Skin General: no rashes or lesions noted, No jaundice and No petechiae Neuro General: alert, oriented x3, gait normal and no focal motor deficits Speech: speech normal <Trish Kumar DO - Last Filed: 07/05/18 03:42> Initial Vital Signs Initial Vital Signs: Vital Signs Pulse Rate 81 07/04/18 16:15 Blood Pressure 81/54 L 07/04/18 16:15 Course <CAESAR Jones - Last Filed: 07/04/18 21:51> Orders Ordered: ED Orders 07/04/18 19:22 EKG-12 Lead Stat 07/04/18 20:52 Comprehensive Metabolic Panel Stat Discontinued Medications Albuterol (Ventolin) 2.5 mg INH NOW ONE Stop: 07/04/18 19:46 Last Admin: 07/04/18 20:15 Dose: 2.5 mg Dextrose (D50w) 25 gm IV NOW ONE Stop: 07/04/18 19:23 Last Admin: 07/04/18 19:40 Dose: 25 gm Hydromorphone HCl (Dilaudid) 0.5 mg IV NOW ONE Stop: 07/04/18 21:07 Last Admin: 07/04/18 21:34 Dose: 0.5 mg Sodium Chloride (Normal Saline 0.9%) 1,000 mls @ 500 mls/hr IV BOLUS ONE Stop: 07/04/18 18:58 Last Infusion: 07/04/18 20:05 Dose: 0 mls/hr Admin: 07/04/18 17:54 Dose: 500 mls/hr Calcium Gluconate 4.65 meq/ (Sodium Chloride) 60 mls @ 120 mls/hr IV NOW ONE Stop: 07/04/18 19:29 Last Admin: 07/04/18 19:42 Dose: 120 mls/hr Insulin Human Regular (Humulin R) 10 unit IV NOW ONE Stop: 07/04/18 19:23 Last Admin: 07/04/18 19:40 Dose: 10 unit Sodium Polystyrene Sulfonate (Kayexalate) 30 gm PO NOW ONE Stop: 07/04/18 19:23 Last Admin: 07/04/18 19:41 Dose: 30 gm Vital Signs - 8 hr 07/04/18 20:00 07/04/18 20:15 07/04/18 20:30 Pulse Rate 90 95 H 100 H Respiratory Rate 14 14 14 Blood Pressure Blood Pressure [Right Arm] 96/60 97/62 Pulse Oximetry 98 07/04/18 21:00 07/04/18 22:51 Pulse Rate 89 66 Respiratory Rate 20 16 Blood Pressure 83/52 L Blood Pressure [Right Arm] 90/56 L Pulse Oximetry 100 100 <Trish Kumar, - Last Filed: 07/05/18 03:42> Orders Ordered: ED Orders 07/04/18 19:22 EKG-12 Lead Stat 07/04/18 20:52 Comprehensive Metabolic Panel Stat Discontinued Medications Albuterol (Ventolin) 2.5 mg INH NOW ONE Stop: 07/04/18 19:46 Last Admin: 07/04/18 20:15 Dose: 2.5 mg Dextrose (D50w) 25 gm IV NOW ONE Stop: 07/04/18 19:23 Last Admin: 07/04/18 19:40 Dose: 25 gm Hydromorphone HCl (Dilaudid) 0.5 mg IV NOW ONE Stop: 07/04/18 21:07 Last Admin: 07/04/18 21:34 Dose: 0.5 mg Sodium Chloride (Normal Saline 0.9%) 1,000 mls @ 500 mls/hr IV BOLUS ONE Stop: 07/04/18 18:58 Last Infusion: 07/04/18 20:05 Dose: 0 mls/hr Admin: 07/04/18 17:54 Dose: 500 mls/hr Calcium Gluconate 4.65 meq/ (Sodium Chloride) 60 mls @ 120 mls/hr IV NOW ONE Stop: 07/04/18 19:29 Last Admin: 07/04/18 19:42 Dose: 120 mls/hr Insulin Human Regular (Humulin R) 10 unit IV NOW ONE Stop: 07/04/18 19:23 Last Admin: 07/04/18 19:40 Dose: 10 unit Sodium Polystyrene Sulfonate (Kayexalate) 30 gm PO NOW ONE Stop: 07/04/18 19:23 Last Admin: 07/04/18 19:41 Dose: 30 gm Vital Signs - 8 hr 07/04/18 20:00 07/04/18 20:15 07/04/18 20:30 Pulse Rate 90 95 H 100 H Respiratory Rate 14 14 14 Blood Pressure Blood Pressure [Right Arm] 96/60 97/62 Pulse Oximetry 98 07/04/18 21:00 07/04/18 22:51 Pulse Rate 89 66 Respiratory Rate 20 16 Blood Pressure 83/52 L Blood Pressure [Right Arm] 90/56 L Pulse Oximetry 100 100 MDM - Recheck/Abnormal Lab/Rx <CAESAR Jones - Last Filed: 07/04/18 21:51> Lab Data Result diagrams: 07/04/18 20:52 Lab Results 07/04/18 Range/Units 20:52 Sodium 134 L (137-145) mmol/L Potassium 5.8 H (3.4-5.1) mmol/L Chloride 93 L (98-107) mmol/L Carbon Dioxide 20 L (22-32) mmol/L BUN 138 H* (7-17) mg/dL Creatinine 7.20 H (0.52-1.04) mg/dL Estimated GFR 5.8 L (>60) mL/min BUN/Creatinine Ratio 19.2 (6-22) Glucose 103 H (70-100) mg/dL Calcium 7.6 L (8.4-10.2) mg/dL Total Bilirubin 2.4 H (0.2-1.3) mg/dL AST 146 H (14-36) IU/L ALT 46 (9-52) IU/L Alkaline Phosphatase 544 H (38-126) U/L Total Protein 6.6 (6.3-8.2) g/dL Albumin 3.2 L (3.5-5.0) g/dL Globulin 3.4 (1.7-4.1) g/dL Albumin/Globulin Ratio 0.9 L (1.0-2.8) Point of Care Testing Glucose POC 103 Urine Dip Bedside Urine Glucose Negative Bedside Urine Bilirubin - Negative Bedside Urine Ketone - Negative Urine Specific [place] 1.025 Bedside Urine Occult Blood +/- Bedside Urine pH 6.0 Bedside Urine Protein + 30 Bedside Urine Urobilinogen - Negative Bedside Urine Nitrite - Negative Bedside Urine Leukocytes - Negative Esterase Imaging Data CT scan - abdomen: Radiologist's impression: [address] [address] [address] Scan Report Signed Patient: Ivy Solorzano [facility]#: [id number] : 1960Acct:[id number] Age/Sex: 58 / FDate of Service: 07/04/18 Loc: ED Accession Number: [id number] Procedure: CT kidney ureter bladder (KUB) Ordering Provider: Long Walker PROCEDURE: CT KIDNEY URETER BLADDER (KUB) INDICATIONS: acute renal failure TECHNIQUE: Noncontrast 5 mm thick sections acquired from the diaphragms to the symphysis. 5 mm thick coronal and sagittal reformats were then performed. For radiation dose reduction, the following was used: automated exposure control, adjustment of mA and/or kV according to patient size. COMPARISON: [facility], CT, CT ABDOMEN PELVIS W CON, 05/06/2018, 16:03. [facility], CT, CT ABDOMEN PELVIS WO CON, 06/19/2018, 15:50. FINDINGS: Image quality: Excellent. Lung bases: There is a small left-sided pleural effusion. Poorly defined opacity can be seen dependently at the left lung base, which is attributed to atelectasis. Urinary system: Mass effect is seen upon the kidneys from the prominent ascites. No giovana hydronephrosis can be seen. Both kidneys are atrophic. No kidney stones. The ureters are not well-seen. Bladder wall thickness is normal; no calcified bladder stones. Other solid organs: Diffuse low-density hepatic metastases are seen, which are similar to the prior recent examination, yet clearly increased compared to the 05/06/18 CT examination. Gallbladder demonstrates layering sludge/stones with in it. The pancreas is not well-seen. Spleen is normal in size. The adrenal glands are not well-seen. Peritoneum and bowel: Unenhanced bowel loops demonstrate normal wall thickness and caliber. No air. There is prominent ascites is seen. Nodes and vessels: No retroperitoneal or mesenteric adenopathy by size criteria. Aorta and inferior vena cava are normal in caliber. Atherosclerotic calcification is noted. Abdominal wall: No ventral hernias. Anasarca can be seen. Pelvis: No free pelvic fluid. No inguinal hernias or adenopathy. Bones: Numerous sclerotic lesions are seen, which are similar to prior studies. No vertebral body compression fractures. IMPRESSION: Mass effect is seen upon the kidneys from the patient's prominent ascites. No giovana hydronephrosis is seen. The kidneys are atrophic. Metastases to the bones and liver. Small left-sided pleural effusion, with overlying mild pulmonary consolidation, which is likely related to atelectasis. However, differential diagnosis also includes infiltrate. Anasarca. Dictated by: Brent Valerio M.D. on 07/04/2018 at 16:33 Approved by: Brent Valerio M.D. on 07/04/2018 at 16:42 ECG Data Interpretation: EKG shows normal sinus rhythm with no ST elevation or depression. No ectopy. Ventricular rate is 78. Pr interval of 170. QRS duration of 97. QTC of four hundred twenty-eight. MDM Narrative Medical decision making narrative: Patient was given insulin, Kayexalate, calcium IV. this brought her potassium down to 5.8. KUB CT was obtained was negative for any new findings. EKG shows sinus rhythm with no ST elevation or depression no ectopy. Patient did not produce any urine while in the emergency room. A Dao catheter was placed on her to monitor urine output. Due to acute renal failure and critical amounts of her creatinine and potassium she is sent to a facility that can start dialysis. She is sent to [facility] accepted. Patient is transferred to [facility] via ALS <Trish Kumar DO - Last Filed: 07/05/18 03:42> Lab Data Lab Results 07/04/18 Range/Units 20:52 Sodium 134 L (137-145) mmol/L Potassium 5.8 H (3.4-5.1) mmol/L Chloride 93 L (98-107) mmol/L Carbon Dioxide 20 L (22-32) mmol/L BUN 138 H* (7-17) mg/dL Creatinine 7.20 H (0.52-1.04) mg/dL Estimated GFR 5.8 L (>60) mL/min BUN/Creatinine Ratio 19.2 (6-22) Glucose 103 H (70-100) mg/dL Calcium 7.6 L (8.4-10.2) mg/dL Total Bilirubin 2.4 H (0.2-1.3) mg/dL AST 146 H (14-36) IU/L ALT 46 (9-52) IU/L Alkaline Phosphatase 544 H (38-126) U/L Total Protein 6.6 (6.3-8.2) g/dL Albumin 3.2 L (3.5-5.0) g/dL Globulin 3.4 (1.7-4.1) g/dL Albumin/Globulin Ratio 0.9 L (1.0-2.8) Point of Care Testing Glucose POC 103 Urine Dip Bedside Urine Glucose Negative Bedside Urine Bilirubin - Negative Bedside Urine Ketone - Negative Urine Specific [place] 1.025 Bedside Urine Occult Blood +/- Bedside Urine pH 6.0 Bedside Urine Protein + 30 Bedside Urine Urobilinogen - Negative Bedside Urine Nitrite - Negative Bedside Urine Leukocytes - Negative Esterase Discharge Plan Departure Patient Disposition: [facility] Clinical Impression: Acute renal failure, Acute hyperkalemia Discharge Date/Time: 07/04/18 22:54 Interventions: ED Discharge Assessment Last Done: 07/04/18 22:51 Prescriptions: No Action atorvastatin [Lipitor] 20 MG tablet 20 mg PO QPM Qty: 0 RF: 0 pramipexole [Mirapex] 0.25 MG tablet 0.25 mg PO QPM Qty: 0 RF: 0 [CANNIBUS] 1 ea miscellaneous PRN PRN (Reason: misc) Qty: 0 RF: 0 levothyroxine 50 mcg tablet 50 mcg PO DAILY RF: 0 oxycodone 5 mg Tablet 5 mg PO Q4-6H PRN (Reason: pancreatic neuroendocrine ca) Qty: 72 RF: 0 prochlorperazine maleate 10 mg tablet 10 mg PO QID PRN (Reason: Nausea And Vomiting) RF: 0 lorazepam 0.5 mg tablet 0.5 mg PO Q6H PRN (Reason: Anxiety) RF: 0 lisinopril 40 mg tablet 40 mg PO DAILY RF: 0 oxycodone 5 mg tablet RF: 0 furosemide 40 mg tablet 40 mg PO DAILY RF: 0 spironolactone 25 mg tablet 1 tab PO DAILY RF: 0 <Trish Kumar DO - Last Filed: 07/05/18 03:42> [facility] Carmella Attestation: I was immediately available in the department for consultation. Documentation has been reviewed. I agree with assessment and plan.
--- NOTE | 2018-07-04 17:12 | DI.CT.S_ITS ---
PROCEDURE: CT KIDNEY URETER BLADDER (KUB) INDICATIONS: acute renal failure TECHNIQUE: Noncontrast 5 mm thick sections acquired from the diaphragms to the symphysis. 5 mm thick coronal and sagittal reformats were then performed. For radiation dose reduction, the following was used: automated exposure control, adjustment of mA and/or kV according to patient size. COMPARISON: [facility], CT, CT ABDOMEN PELVIS W CON, 05/06/2018, 16:03. [facility], CT, CT ABDOMEN PELVIS WO CON, 06/19/2018, 15:50. FINDINGS: Image quality: Excellent. Lung bases: There is a small left-sided pleural effusion. Poorly defined opacity can be seen dependently at the left lung base, which is attributed to atelectasis. Urinary system: Mass effect is seen upon the kidneys from the prominent ascites. No giovana hydronephrosis can be seen. Both kidneys are atrophic. No kidney stones. The ureters are not well-seen. Bladder wall thickness is normal; no calcified bladder stones. Other solid organs: Diffuse low-density hepatic metastases are seen, which are similar to the prior recent examination, yet clearly increased compared to the 05/06/18 CT examination. Gallbladder demonstrates layering sludge/stones with in it. The pancreas is not well-seen. Spleen is normal in size. The adrenal glands are not well-seen. Peritoneum and bowel: Unenhanced bowel loops demonstrate normal wall thickness and caliber. No air. There is prominent ascites is seen. Nodes and vessels: No retroperitoneal or mesenteric adenopathy by size criteria. Aorta and inferior vena cava are normal in caliber. Atherosclerotic calcification is noted. Abdominal wall: No ventral hernias. Anasarca can be seen. Pelvis: No free pelvic fluid. No inguinal hernias or adenopathy. Bones: Numerous sclerotic lesions are seen, which are similar to prior studies. No vertebral body compression fractures. IMPRESSION: Mass effect is seen upon the kidneys from the patient's prominent ascites. No giovana hydronephrosis is seen. The kidneys are atrophic. Metastases to the bones and liver. Small left-sided pleural effusion, with overlying mild pulmonary consolidation, which is likely related to atelectasis. However, differential diagnosis also includes infiltrate. Anasarca. Dictated by: Brent Valerio M.D. on 07/04/2018 at 16:33 Approved by: Brent Valerio M.D. on 07/04/2018 at 16:42
[2018-07-04] MEDS: SODIUM CHLORIDE 0.9% 1,000 ML 500 ML IV (17:54)
[2018-07-04] MEDS: DEXTROSE 50 % IN WATER 25 GM/50 ML SYRINGE IV (19:40)
[2018-07-04] MEDS: INSULIN REGULAR 100 UNIT/ML 3 ML VIAL 10 UNIT IV (19:40)
[2018-07-04] MEDS: SODIUM POLYSTYRENE SULFON/SORB 15 GM/60 ML CUP 30 GM PO (19:41)
[2018-07-04] MEDS: CALCIUM GLUCONATE 4.65 MEQ in SODIUM CHLORIDE 0.9% 50 ML 120 ML IV (19:42)
[2018-07-04] MEDS: ALBUTEROL 2.5 MG/3 ML NEB (ADULT) INH (20:15)
[2018-07-04 21:14] LABS: Alanine Aminotransferase 46 IU/L (9-52); Albumin 3.2 g/dL (3.5-5.0); Albumin Globulin Ratio 0.9 (1.0-2.8); Alkaline Phosphatase 544 U/L (38-126); Aspartate Aminotransferase 146 IU/L (14-36); Bilirubin Total 2.4 mg/dL (0.2-1.3); Calcium 7.6 mg/dL (8.4-10.2); Carbon Dioxide 20 mmol/L (22-32); Chloride 93 mmol/L (98-107); Globulin 3.4 g/dL (1.7-4.1); Glucose 103 mg/dL (70-100); HEMOLYSIS < 15 (0-50); Sodium 134 mmol/L (137-145); Total Protein 6.6 g/dL (6.3-8.2)
[2018-07-04 21:20] LABS: Estimated Glomerular Filt Rate 5.8 mL/min (>60)
[2018-07-04 21:29] LABS: Potassium 5.8 mmol/L (3.4-5.1)
[2018-07-04 21:30] LABS: BUN Creatinine Ratio 19.2 (6-22); Blood Urea Nitrogen 138 mg/dL (7-17)
[2018-07-04] MEDS: HYDROMORPHONE 1 MG INJ 0.5 MG IV (21:34)
--- NOTE | 2018-07-04 21:40 | ED_ITS ---
HPI - Recheck/Abnormal Lab/Rx <CAESAR Jones - Last Filed: 07/04/18 21:51> General Chief Complaint: Recheck/Abnormal Lab/Rx Stated Complaint: SENT BY ONCOLOGY Time Seen by Provider: 07/04/18 16:34 Source: patient Mode of arrival: ambulatory Limitations: no limitations History of Present Illness HPI narrative: 58-year-old female with history of pancreatic cancer with mets to her liver is an everyday smoker sent over to emergency room from oncology due to having abnormal labs today. CMP shows an elevated potassium of 6.3 and BUN of 140 and creatinine of 7.8 which is sharp increased from her prior lab values. patient denies any increase abdominal pain over her baseline. She denies any flank pain. She states that she is tolerating p.o. intake she does states she has had a decreased appetite over the past several weeks. Although she states she is tolerating fluids well. she states that she is making urine. She denies any chest pain. she denies any other concerns or complaints at this time. Related Data Home Medications Medication Instructions Recorded Confirmed [CANNIBUS] 1 ea MISCELLANEOUS PRN PRN #0 11/16/17 07/03/18 atorvastatin [Lipitor] 20 mg PO QPM #0 11/16/17 07/03/18 pramipexole [Mirapex] 0.25 mg PO QPM #0 11/16/17 07/04/18 levothyroxine 50 mcg PO DAILY 05/06/18 07/03/18 furosemide 40 mg PO DAILY 06/02/18 07/04/18 spironolactone 1 tab PO DAILY 06/02/18 07/04/18 lisinopril 40 mg PO DAILY 07/04/18 07/04/18 lorazepam 0.5 mg PO Q6H PRN 07/04/18 07/04/18 oxycodone 07/04/18 prochlorperazine maleate 10 mg PO QID PRN 07/04/18 07/04/18 Previous Rx's Medication Instructions Recorded oxycodone 5 mg PO Q4-6H PRN #72 tab 07/03/18 Allergies Allergy/AdvReac Type Severity Reaction Status Date / Time No Known Drug Allergies Allergy Verified 07/04/18 16:15 Review of Systems <CAESAR Jonse - Last Filed: 07/04/18 21:51> Constitutional Denies chills, Denies fever(s), Denies lethargy and Denies weakness Eyes Denies change in vision, Denies eye discharge, Denies irritation and Denies loss of vision ENT Ears, Nose, Mouth, and Throat: Denies change in voice, Denies neck pain and Denies sore throat Cardiovascular Denies chest pain, Denies irregular heart rhythm, Denies lightheadedness, Denies palpitations, Denies dyspnea, Denies dyspnea on exertion and Denies orthopnea Respiratory Denies cough, Denies dyspnea, Denies dyspnea on exertion and Denies wheezing Gastrointestinal Gastrointestinal: Reports abdominal pain, Denies change in bowel habits, Denies diarrhea, Denies nausea and Denies vomiting Genitourinary Denies hematuria, Denies flank pain, Denies urinary incontinence and Denies urinary urgency Musculoskeletal Denies neck pain Neurologic Denies confusion, Denies loss of vision and Denies weakness Psychiatric Denies anxiety, Denies confusion, Denies depression, Denies homicidal ideation and Denies suicidal ideation Endocrine Denies palpitations Hematologic/Lymphatic Denies easy bruising Allergic/Immunologic Denies wheezing Exam <Long Walker [facility] - Last Filed: 07/04/18 21:51> Initial Vital Signs Initial Vital Signs: Vital Signs Pulse Rate 81 07/04/18 16:15 Blood Pressure 81/54 L 07/04/18 16:15 Const General: cooperative and well developed Nutritional Appearance: well nourished Orientation: alert, awake, oriented x3 and not confused [facility] Mouth: oral mucosae normal, oropharynx normal and moist mucous membranes Eyes Conjunctivae: conjunctivae normal Sclera: sclerae normal Pupils: PERRL EOM: EOM intact bilaterally Resp Effort & Inspection: normal respiratory effort, able to speak in complete sentences, no respiratory distress and no use of accessory muscles Auscultation: clear to auscultation bilaterally, no rales, no rhonchi and no wheezes Cardio Rate: regular rate Rhythm: regular rhythm Heart Sounds: no click, no gallops, no murmurs and no rubs Pulses: normal peripheral pulses GI Inspection: non-distended and other ( Ascites) Palpation: soft, no hepatosplenomegaly, No guarding, No pulsatile mass and No tender Auscultation: normal bowel sounds General: No CVA tenderness Skin General: no rashes or lesions noted, No jaundice and No petechiae Neuro General: alert, oriented x3, gait normal and no focal motor deficits Speech: speech normal <Trish Kumar DO - Last Filed: 07/05/18 03:42> Initial Vital Signs Initial Vital Signs: Vital Signs Pulse Rate 81 07/04/18 16:15 Blood Pressure 81/54 L 07/04/18 16:15 Course <CAESAR Jones - Last Filed: 07/04/18 21:51> Orders Ordered: ED Orders 07/04/18 19:22 EKG-12 Lead Stat 07/04/18 20:52 Comprehensive Metabolic Panel Stat Discontinued Medications Albuterol (Ventolin) 2.5 mg INH NOW ONE Stop: 07/04/18 19:46 Last Admin: 07/04/18 20:15 Dose: 2.5 mg Dextrose (D50w) 25 gm IV NOW ONE Stop: 07/04/18 19:23 Last Admin: 07/04/18 19:40 Dose: 25 gm Hydromorphone HCl (Dilaudid) 0.5 mg IV NOW ONE Stop: 07/04/18 21:07 Last Admin: 07/04/18 21:34 Dose: 0.5 mg Sodium Chloride (Normal Saline 0.9%) 1,000 mls @ 500 mls/hr IV BOLUS ONE Stop: 07/04/18 18:58 Last Infusion: 07/04/18 20:05 Dose: 0 mls/hr Admin: 07/04/18 17:54 Dose: 500 mls/hr Calcium Gluconate 4.65 meq/ (Sodium Chloride) 60 mls @ 120 mls/hr IV NOW ONE Stop: 07/04/18 19:29 Last Admin: 07/04/18 19:42 Dose: 120 mls/hr Insulin Human Regular (Humulin R) 10 unit IV NOW ONE Stop: 07/04/18 19:23 Last Admin: 07/04/18 19:40 Dose: 10 unit Sodium Polystyrene Sulfonate (Kayexalate) 30 gm PO NOW ONE Stop: 07/04/18 19:23 Last Admin: 07/04/18 19:41 Dose: 30 gm Vital Signs - 8 hr 07/04/18 20:00 07/04/18 20:15 07/04/18 20:30 Pulse Rate 90 95 H 100 H Respiratory Rate 14 14 14 Blood Pressure Blood Pressure [Right Arm] 96/60 97/62 Pulse Oximetry 98 07/04/18 21:00 07/04/18 22:51 Pulse Rate 89 66 Respiratory Rate 20 16 Blood Pressure 83/52 L Blood Pressure [Right Arm] 90/56 L Pulse Oximetry 100 100 <Trish Kumar, - Last Filed: 07/05/18 03:42> Orders Ordered: ED Orders 07/04/18 19:22 EKG-12 Lead Stat 07/04/18 20:52 Comprehensive Metabolic Panel Stat Discontinued Medications Albuterol (Ventolin) 2.5 mg INH NOW ONE Stop: 07/04/18 19:46 Last Admin: 07/04/18 20:15 Dose: 2.5 mg Dextrose (D50w) 25 gm IV NOW ONE Stop: 07/04/18 19:23 Last Admin: 07/04/18 19:40 Dose: 25 gm Hydromorphone HCl (Dilaudid) 0.5 mg IV NOW ONE Stop: 07/04/18 21:07 Last Admin: 07/04/18 21:34 Dose: 0.5 mg Sodium Chloride (Normal Saline 0.9%) 1,000 mls @ 500 mls/hr IV BOLUS ONE Stop: 07/04/18 18:58 Last Infusion: 07/04/18 20:05 Dose: 0 mls/hr Admin: 07/04/18 17:54 Dose: 500 mls/hr Calcium Gluconate 4.65 meq/ (Sodium Chloride) 60 mls @ 120 mls/hr IV NOW ONE Stop: 07/04/18 19:29 Last Admin: 07/04/18 19:42 Dose: 120 mls/hr Insulin Human Regular (Humulin R) 10 unit IV NOW ONE Stop: 07/04/18 19:23 Last Admin: 07/04/18 19:40 Dose: 10 unit Sodium Polystyrene Sulfonate (Kayexalate) 30 gm PO NOW ONE Stop: 07/04/18 19:23 Last Admin: 07/04/18 19:41 Dose: 30 gm Vital Signs - 8 hr 07/04/18 20:00 07/04/18 20:15 07/04/18 20:30 Pulse Rate 90 95 H 100 H Respiratory Rate 14 14 14 Blood Pressure Blood Pressure [Right Arm] 96/60 97/62 Pulse Oximetry 98 07/04/18 21:00 07/04/18 22:51 Pulse Rate 89 66 Respiratory Rate 20 16 Blood Pressure 83/52 L Blood Pressure [Right Arm] 90/56 L Pulse Oximetry 100 100 MDM - Recheck/Abnormal Lab/Rx <CAESAR Jones - Last Filed: 07/04/18 21:51> Lab Data Result diagrams: 07/04/18 20:52 Lab Results 07/04/18 Range/Units 20:52 Sodium 134 L (137-145) mmol/L Potassium 5.8 H (3.4-5.1) mmol/L Chloride 93 L (98-107) mmol/L Carbon Dioxide 20 L (22-32) mmol/L BUN 138 H* (7-17) mg/dL Creatinine 7.20 H (0.52-1.04) mg/dL Estimated GFR 5.8 L (>60) mL/min BUN/Creatinine Ratio 19.2 (6-22) Glucose 103 H (70-100) mg/dL Calcium 7.6 L (8.4-10.2) mg/dL Total Bilirubin 2.4 H (0.2-1.3) mg/dL AST 146 H (14-36) IU/L ALT 46 (9-52) IU/L Alkaline Phosphatase 544 H (38-126) U/L Total Protein 6.6 (6.3-8.2) g/dL Albumin 3.2 L (3.5-5.0) g/dL Globulin 3.4 (1.7-4.1) g/dL Albumin/Globulin Ratio 0.9 L (1.0-2.8) Point of Care Testing Glucose POC 103 Urine Dip Bedside Urine Glucose Negative Bedside Urine Bilirubin - Negative Bedside Urine Ketone - Negative Urine Specific [place] 1.025 Bedside Urine Occult Blood +/- Bedside Urine pH 6.0 Bedside Urine Protein + 30 Bedside Urine Urobilinogen - Negative Bedside Urine Nitrite - Negative Bedside Urine Leukocytes - Negative Esterase Imaging Data CT scan - abdomen: Radiologist's impression: [address] [address] [address] Scan Report Signed Patient: Ivy Solorzano [facility]#: [id number] : 1960Acct:[id number] Age/Sex: 58 / FDate of Service: 07/04/18 Loc: ED Accession Number: [id number] Procedure: CT kidney ureter bladder (KUB) Ordering Provider: Long Walker PROCEDURE: CT KIDNEY URETER BLADDER (KUB) INDICATIONS: acute renal failure TECHNIQUE: Noncontrast 5 mm thick sections acquired from the diaphragms to the symphysis. 5 mm thick coronal and sagittal reformats were then performed. For radiation dose reduction, the following was used: automated exposure control, adjustment of mA and/or kV according to patient size. COMPARISON: [facility], CT, CT ABDOMEN PELVIS W CON, 05/06/2018, 16:03. [facility], CT, CT ABDOMEN PELVIS WO CON, 06/19/2018, 15:50. FINDINGS: Image quality: Excellent. Lung bases: There is a small left-sided pleural effusion. Poorly defined opacity can be seen dependently at the left lung base, which is attributed to atelectasis. Urinary system: Mass effect is seen upon the kidneys from the prominent ascites. No giovana hydronephrosis can be seen. Both kidneys are atrophic. No kidney stones. The ureters are not well-seen. Bladder wall thickness is normal; no calcified bladder stones. Other solid organs: Diffuse low-density hepatic metastases are seen, which are similar to the prior recent examination, yet clearly increased compared to the 05/06/18 CT examination. Gallbladder demonstrates layering sludge/stones with in it. The pancreas is not well-seen. Spleen is normal in size. The adrenal glands are not well-seen. Peritoneum and bowel: Unenhanced bowel loops demonstrate normal wall thickness and caliber. No air. There is prominent ascites is seen. Nodes and vessels: No retroperitoneal or mesenteric adenopathy by size criteria. Aorta and inferior vena cava are normal in caliber. Atherosclerotic calcification is noted. Abdominal wall: No ventral hernias. Anasarca can be seen. Pelvis: No free pelvic fluid. No inguinal hernias or adenopathy. Bones: Numerous sclerotic lesions are seen, which are similar to prior studies. No vertebral body compression fractures. IMPRESSION: Mass effect is seen upon the kidneys from the patient's prominent ascites. No giovana hydronephrosis is seen. The kidneys are atrophic. Metastases to the bones and liver. Small left-sided pleural effusion, with overlying mild pulmonary consolidation, which is likely related to atelectasis. However, differential diagnosis also includes infiltrate. Anasarca. Dictated by: Brent Valerio M.D. on 07/04/2018 at 16:33 Approved by: Brent Valerio M.D. on 07/04/2018 at 16:42 ECG Data Interpretation: EKG shows normal sinus rhythm with no ST elevation or depression. No ectopy. Ventricular rate is 78. Pr interval of 170. QRS duration of 97. QTC of four hundred twenty-eight. MDM Narrative Medical decision making narrative: Patient was given insulin, Kayexalate, calcium IV. this brought her potassium down to 5.8. KUB CT was obtained was negative for any new findings. EKG shows sinus rhythm with no ST elevation or depression no ectopy. Patient did not produce any urine while in the emergency room. A Dao catheter was placed on her to monitor urine output. Due to acute renal failure and critical amounts of her creatinine and potassium she is sent to a facility that can start dialysis. She is sent to [facility]. [facility] accepted. Patient is transferred to [facility] via ALS <Trish Kumar DO - Last Filed: 07/05/18 03:42> Lab Data Lab Results 07/04/18 Range/Units 20:52 Sodium 134 L (137-145) mmol/L Potassium 5.8 H (3.4-5.1) mmol/L Chloride 93 L (98-107) mmol/L Carbon Dioxide 20 L (22-32) mmol/L BUN 138 H* (7-17) mg/dL Creatinine 7.20 H (0.52-1.04) mg/dL Estimated GFR 5.8 L (>60) mL/min BUN/Creatinine Ratio 19.2 (6-22) Glucose 103 H (70-100) mg/dL Calcium 7.6 L (8.4-10.2) mg/dL Total Bilirubin 2.4 H (0.2-1.3) mg/dL AST 146 H (14-36) IU/L ALT 46 (9-52) IU/L Alkaline Phosphatase 544 H (38-126) U/L Total Protein 6.6 (6.3-8.2) g/dL Albumin 3.2 L (3.5-5.0) g/dL Globulin 3.4 (1.7-4.1) g/dL Albumin/Globulin Ratio 0.9 L (1.0-2.8) Point of Care Testing Glucose POC 103 Urine Dip Bedside Urine Glucose Negative Bedside Urine Bilirubin - Negative Bedside Urine Ketone - Negative Urine Specific [place] 1.025 Bedside Urine Occult Blood +/- Bedside Urine pH 6.0 Bedside Urine Protein + 30 Bedside Urine Urobilinogen - Negative Bedside Urine Nitrite - Negative Bedside Urine Leukocytes - Negative Esterase Discharge Plan Departure Patient Disposition: [facility] Clinical Impression: Acute renal failure, Acute hyperkalemia Discharge Date/Time: 07/04/18 22:54 Interventions: ED Discharge Assessment Last Done: 07/04/18 22:51 Prescriptions: No Action atorvastatin [Lipitor] 20 MG tablet 20 mg PO QPM Qty: 0 RF: 0 pramipexole [Mirapex] 0.25 MG tablet 0.25 mg PO QPM Qty: 0 RF: 0 [CANNIBUS] 1 ea miscellaneous PRN PRN (Reason: misc) Qty: 0 RF: 0 levothyroxine 50 mcg tablet 50 mcg PO DAILY RF: 0 oxycodone 5 mg Tablet 5 mg PO Q4-6H PRN (Reason: pancreatic neuroendocrine ca) Qty: 72 RF: 0 prochlorperazine maleate 10 mg tablet 10 mg PO QID PRN (Reason: Nausea And Vomiting) RF: 0 lorazepam 0.5 mg tablet 0.5 mg PO Q6H PRN (Reason: Anxiety) RF: 0 lisinopril 40 mg tablet 40 mg PO DAILY RF: 0 oxycodone 5 mg tablet RF: 0 furosemide 40 mg tablet 40 mg PO DAILY RF: 0 spironolactone 25 mg tablet 1 tab PO DAILY RF: 0 <Trish Kumar DO - Last Filed: 07/05/18 03:42> [facility] Carmella Attestation: I was immediately available in the department for consultation. Documentation has been reviewed. I agree with assessment and plan.
== END 2018-07-04 22:54 | disposition short-term general hospital (02) ==
PROVIDERS: Emergency Provider Nurse Practitioner Family; Family Provider Internal Medicine Hematology & Oncology; PCP Internal Medicine Hematology & Oncology
DX: N17.9 Acute kidney failure, unspecified (principal); E87.5 Hyperkalemia
CPT/HCPCS: 36415; 51701; 74176; 80053; 81003; 83615; 85025; 85610; 93005; 93010; 94640; 96365; 96375; 99284; 99285; J0610; J1170; J7613